=== PATIENT | female | born 1960 | race African-American/Black ===

== ENCOUNTER 2016-07-05 15:44 | Observation (INO) | payer MEDICAID ==
[2016-07-05 19:51] LABS: ABSOLUTE EOSINOPHILS # (AUTO) 0.4 10^3/uL (0.0-0.6); ABSOLUTE LYMPHOCYTES (AUTO) 3.8 10^3/uL (0.5-4.7); ABSOLUTE MONOCYTES (AUTO) 0.7 10^3/uL (0.1-1.4); ABSOLUTE NEUT (AUTO) 4.9 10^3/uL (1.7-8.2); BASOPHILS % (AUTO) 0.5 % (0-2); EOSINOPHILS % (AUTO) 3.7 % (0-6); HEMOGLOBIN 11.5 g/dL (12.0-15.5); HGB HCT DIFFERENCE -0.5; MEAN CORPUSCULAR HEMOGLOBIN 28.6 pg (27.0-33.4); MEAN CORPUSCULAR HGB CONC 32.9 g/dL (32.0-36.0); MEAN CORPUSCULAR VOLUME 87 fl (80-97); MONOCYTES % (AUTO) 6.8 % (3-13); RED BLOOD COUNT 4.03 10^6/uL (3.72-5.28); RED CELL DISTRIBUTION WIDTH 15.2 % (11.5-14.0); WHITE BLOOD COUNT 9.8 10^3/uL (4.0-10.5)
[2016-07-05 20:03] LABS: ALBUMIN 4.5 g/dL (3.5-5.0); BILIRUBIN,TOTAL 0.5 mg/dL (0.2-1.3); LIPASE 144.3 U/L (23-300); TOTAL PROTEIN 7.4 g/dL (6.3-8.2)
[2016-07-05 20:14] LABS: CREATINE KINASE MB 0.76 ng/mL (<4.55)
[2016-07-05 20:18] LABS: TROPONIN I < 0.012 ng/mL
[2016-07-05 20:32] LABS: THYROID STIMULATING HORMONE 1.75 uIU/mL (0.47-4.68)
[2016-07-05 20:42] LABS: ANION GAP 16 (5-19); BLOOD UREA NITROGEN 21 mg/dL (7-20); CALCIUM 10.6 mg/dL (8.4-10.2); CARBON DIOXIDE 24 mmol/L (22-30); CHLORIDE 100 mmol/L (98-107); GLUCOSE 244 mg/dL (75-110); POTASSIUM 4.1 mmol/L (3.6-5.0); SODIUM 140.1 mmol/L (137-145)
[2016-07-05] MEDS: OXYCODONE-ACETAMINOPHEN 5-325 MG TABLET PO PRN (23:28)
[2016-07-06] MEDS: OXYCODONE-ACETAMINOPHEN 5-325 MG TABLET PO PRN ×4 (04:10→23:30)
[2016-07-06 04:23] LABS: APPEARANCE,URINE CLEAR; BILIRUBIN,URINE NEGATIVE (NEGATIVE); GLUCOSE, URINE >=500 mg/dL (NEGATIVE); KETONES,URINE NEGATIVE (NEGATIVE); LEUKOCYTE ESTERASE,URINE NEGATIVE (NEGATIVE); NITRITE,URINE NEGATIVE (NEGATIVE); PROTEIN,URINE NEGATIVE (NEGATIVE); URINE SPECIFIC GRAVITY 1.023; UROBILINOGEN,URINE NEGATIVE mg/dL (<2.0)
[2016-07-06 04:31] LABS: CREATINE KINASE MB 0.57 ng/mL (<4.55); TROPONIN I < 0.012 ng/mL
[2016-07-06] MEDS: ENOXAPARIN SODIUM INJ 40 MG/0.4 ML DISP.SYRIN SUBCUT SCH (08:17)
[2016-07-06 09:15] LABS: HEMATOCRIT 33.8 % (36.0-47.0); HEMOGLOBIN 11.2 g/dL (12.0-15.5); HGB HCT DIFFERENCE -0.2; MEAN CORPUSCULAR HEMOGLOBIN 28.9 pg (27.0-33.4); MEAN CORPUSCULAR HGB CONC 33.3 g/dL (32.0-36.0); MEAN CORPUSCULAR VOLUME 87 fl (80-97); RED BLOOD COUNT 3.89 10^6/uL (3.72-5.28); RED CELL DISTRIBUTION WIDTH 14.8 % (11.5-14.0); WHITE BLOOD COUNT 8.7 10^3/uL (4.0-10.5)
[2016-07-06] MEDS ORDERED: DEXTROSE 40% GEL 15 GM TUBE PO PRN (10:11)
[2016-07-06] MEDS ORDERED: DEXTROSE 50%-WATER SYRINGE 25 GM/50 ML DOSE IV PRN (10:11)
[2016-07-06] MEDS ORDERED: DEXTROSE 50%-WATER SYRINGE 12.5 GM/25 ML DOSE IV PRN (10:11)
[2016-07-06] MEDS ORDERED: DEXTROSE 40% GEL 15 GM TUBE X 2 PO PRN (10:11)
[2016-07-06] MEDS ORDERED: GLUCAGON,HUMAN RECOMB 1 MG INJ IM PRN (10:11)
[2016-07-06] MEDS: INSULIN LISPRO 100 UNIT/ML 3 ML VIAL SUBCUT PRN ×2 (12:16→17:14)
[2016-07-06] MEDS: MORPHINE SULFATE 10 MG/ML INJ IV PRN ×2 (12:29→19:26)
[2016-07-06] MEDS ORDERED: ENALAPRIL MALEATE 10 MG TABLET PO ONE (12:30)
[2016-07-06] MEDS ORDERED: CARVEDILOL 12.5 MG TABLET PO ONE (12:30)
[2016-07-06] MEDS ORDERED: VALSARTAN 160 MG TABLET PO ONE (12:30)
[2016-07-06] MEDS ORDERED: CHLORTHALIDONE 25 MG TABLET PO ONE (12:30)
[2016-07-06 12:58] LABS: PROTHROMBIN TIME 13.6 SEC (11.4-15.4)
--- NOTE | 2016-07-06 13:27 | PDOC CONSULTATION ---
Consultation Consult Date: 07/06/16 Attending physician:: MAICOL BEST Consult reason:: Epigastric pain History of Present Illness Admission Date/PCP: 07/05/16 18:45 MAKAYLA ESPINOZA MD History of Present Illness: RADHA DENSON is a 56 year old female Patient has been seen multiple times in the past had EGD in the past not able to tolerated conscious sedation patient states has epigastric pain, does have previous ventral hernia repair with mesh patient previous EGD showed some gastritis and likely some Mckenzie's patient did not return for follow up as an outpatient patient denies any nausea and vomiting there is no melena patient states has some early satiety blood per rectum admitted for further work up CT scan done, no significant findings Past Medical History Cardiac Medical History: Reports: Atrial Fibrillation, Congestive Heart Failure , Myocardial Infarction, Hyperlipidema, Hypertension Denies: Coronary Artery Disease Pulmonary Medical History: Reports: Asthma, Chronic Obstructive Pulmonary Disease (COPD), Pneumonia Denies: Bronchitis, Tuberculosis Neurological Medical History: Denies: Seizures Endocrine Medical History: Reports: Diabetes Mellitus Type 1, Diabetes Mellitus Type 2 GI Medical History: Reports: Gastroesophageal Reflux Disease Musculoskeltal Medical History: Reports: Arthritis, Fibromyalgia Psychiatric Medical History: Reports: Depression Hematology: Denies: Anemia Past Surgical History Past Surgical History: Reports: Cardiac Catheterization, Cholecystectomy, Herniorrhaphy, Hysterectomy, Orthopedic Surgery - right foot, right knee, right hand, Tubal Ligation Denies: Pacemaker Social History Smoking Status: Current Every Day Smoker Cigarettes Packs Per Day: 0.5 Frequency of Alcohol Use: Rare Hx Recreational Drug Use: No Drugs: None Hx Prescription Drug Abuse: No Family History Family History: DM Parental Family History Reviewed: Yes Children Family History Reviewed: Unknown Sibling(s) Family History Reviewed.: Unknown Medication/Allergy Home Medications: Atorvastatin Calcium [Lipitor 40 mg Tablet] 40 mg PO QHS 07/06/16 Canagliflozin [Invokana] 50 mg PO BID 07/06/16 Carvedilol [Coreg 25 mg Tablet] 25 mg PO Q12 07/06/16 Chlorthalidone [Chlorthalidone 25 mg Tablet] 25 mg PO DAILY 07/06/16 Dexlansoprazole [Dexilant 60 mg Capsule] 60 mg PO DAILY 07/06/16 Enalapril Maleate [Vasotec 20 mg Tablet] 20 mg PO DAILY 07/06/16 Furosemide [Lasix] 40 mg PO QAM 07/06/16 Insulin Aspart [Novolog Flexpen] 18 unit SUBCUT BIDACBS 07/06/16 Insulin Detemir [Levemir Insulin 300 Units/3 ml Insuln.pen] 80 unit SUBCUT QHS 07/06/16 Levothyroxine Sodium [Synthroid] 100 mcg PO DAILY 07/06/16 Metformin HCl [Glucophage] 1,000 mg PO BID 07/06/16 Multivitamin [Multivitamins] 1 each PO DAILY 07/06/16 Valsartan [Diovan] 320 mg PO DAILY 07/06/16 Allergies/Adverse Reactions: No Known Allergies Allergy (Verified 05/05/16 15:00) Review of Systems Constitutional: ABSENT: fever(s), headache(s), night sweats, weakness Eyes: ABSENT: visual disturbances Ears: ABSENT: hearing changes Nose, Mouth, and Throat: ABSENT: mouth pain Cardiovascular: ABSENT: edema, orthropnea Respiratory: ABSENT: dyspnea, hemoptysis, other Gastrointestinal: ABSENT: coffee ground emesis, diarrhea, dysphagia, nausea, vomiting Genitourinary: ABSENT: dysuria, hematuria Musculoskeletal: ABSENT: deformity, joint swelling Integumentary: ABSENT: lesions Neurological: ABSENT: frequent falls, paresthesias, syncope, tingling, tremor(s) Psychiatric: PRESENT: anxiety. ABSENT: hallucinations Endocrine: ABSENT: heat intolerance, polydipsia, polyphagia, polyuria Hematologic/Lymphatic: ABSENT: easy bruising Physical Exam Vital Signs: Temp Pulse Resp BP Pulse Ox 97.6 F 81 20 123/71 97 07/06/16 11:44 07/06/16 11:44 07/06/16 11:44 07/06/16 11:44 07/06/16 11:44 Intake & Output 07/05/16 07/06/16 07/07/16 06:59 06:59 06:59 Intake Total 240 Output Total 500 Balance -260 Weight 105.1 kg General appearance: PRESENT: mild distress, well-developed, well-nourished Head exam: PRESENT: atraumatic, normocephalic Eye exam: PRESENT: EOMI, PERRLA. ABSENT: nystagmus, periorbital swelling, scleral icterus Mouth exam: PRESENT: moist, neck supple Throat exam: ABSENT: tonsillar exudate, tonsillogmegaly Neck exam: ABSENT: meningismus, tenderness, thyromegaly Respiratory exam: PRESENT: symmetrical, unlabored. ABSENT: rales, retraction, tachypnea GI/Abdominal exam: PRESENT: soft. ABSENT: Maldonado's sign, rebound, rigid, tenderness Extremities exam: ABSENT: joint swelling Musculoskeletal exam: PRESENT: full ROM Neurological exam: PRESENT: alert, awake, oriented to person, oriented to place , oriented to time, oriented to situation, reflexes normal Psychiatric exam: PRESENT: anxious Skin exam: PRESENT: normal color. ABSENT: mottled, pallor, urticaria, vesicles Results Laboratory Results: 07/06/16 03:55 07/06/16 03:59 07/05/16 07/05/16 07/05/16 19:45 19:45 19:45 WBC 9.8 RBC 4.03 Hgb 11.5 L Hct 35.0 L MCV 87 MCH 28.6 MCHC 32.9 RDW 15.2 H Plt Count 309 Seg Neutrophils % 50.0 Lymphocytes % 39.0 Monocytes % 6.8 Eosinophils % 3.7 Basophils % 0.5 Absolute Neutrophils 4.9 Absolute Lymphocytes 3.8 Absolute Monocytes 0.7 Absolute Eosinophils 0.4 Absolute Basophils 0.0 Sodium Potassium Chloride Carbon Dioxide Anion Gap BUN Creatinine Est GFR ( Amer) Est GFR (Non-Af Amer) Glucose Calcium Total Bilirubin 0.5 AST 22 ALT 31 Alkaline Phosphatase 112 Total Protein 7.4 Albumin 4.5 Amylase 102 Lipase 144.3 TSH 1.75 Free T4 1.08 Urine Color Urine Appearance Urine pH Ur Specific Hundred Urine Protein Urine Glucose (UA) Urine Ketones Urine Blood Urine Nitrite Ur Leukocyte Esterase Urine RBC (Auto) 07/05/16 07/05/16 07/06/16 19:45 19:45 03:55 WBC 8.7 RBC 3.89 Hgb 11.2 L Hct 33.8 L MCV 87 MCH 28.9 MCHC 33.3 RDW 14.8 H Plt Count 296 Seg Neutrophils % Lymphocytes % Monocytes % Eosinophils % Basophils % Absolute Neutrophils Absolute Lymphocytes Absolute Monocytes Absolute Eosinophils Absolute Basophils Sodium Cancelled 140.1 Potassium Cancelled 4.1 Chloride Cancelled 100 Carbon Dioxide Cancelled 24 Anion Gap Cancelled 16 BUN Cancelled 21 H Creatinine Cancelled 0.90 Est GFR ( Amer) Cancelled > 60 Est GFR (Non-Af Amer) Cancelled > 60 Glucose Cancelled 244 H Calcium Cancelled 10.6 H Total Bilirubin Cancelled AST Cancelled ALT Cancelled Alkaline Phosphatase Cancelled Total Protein Cancelled Albumin Cancelled Amylase Lipase TSH Free T4 Urine Color Urine Appearance Urine pH Ur Specific Hundred Urine Protein Urine Glucose (UA) Urine Ketones Urine Blood Urine Nitrite Ur Leukocyte Esterase Urine RBC (Auto) 07/06/16 07/06/16 03:59 04:10 WBC RBC Hgb Hct MCV MCH MCHC RDW Plt Count Seg Neutrophils % Lymphocytes % Monocytes % Eosinophils % Basophils % Absolute Neutrophils Absolute Lymphocytes Absolute Monocytes Absolute Eosinophils Absolute Basophils Sodium Potassium Chloride Carbon Dioxide Anion Gap BUN Creatinine 0.80 Est GFR ( Amer) > 60 Est GFR (Non-Af Amer) > 60 Glucose Calcium Total Bilirubin AST ALT Alkaline Phosphatase Total Protein Albumin Amylase Lipase TSH Free T4 Urine Color STRAW Urine Appearance CLEAR Urine pH 5.0 Ur Specific Hundred 1.023 Urine Protein NEGATIVE Urine Glucose (UA) >=500 H Urine Ketones NEGATIVE Urine Blood NEGATIVE Urine Nitrite NEGATIVE Ur Leukocyte Esterase NEGATIVE Urine RBC (Auto) 0 07/05/16 07/05/16 07/06/16 19:45 19:45 03:59 Creatine Kinase 87 68 CK-MB (CK-2) 0.76 Troponin I < 0.012 07/06/16 03:59 Creatine Kinase CK-MB (CK-2) 0.57 Troponin I < 0.012 Impressions: Chest X-Ray 07/05/16 00:00 IMPRESSION: NO ACUTE RADIOGRAPHIC FINDING IN THE CHEST. NO SIGNIFICANT CHANGE FROM PRIOR STUDY. Abdomen/Pelvis CT 07/06/16 00:00 IMPRESSION: Intact ventral hernia repair Assessment & Plan - Diagnosis (1) Abdominal pain Qualifiers: Plan: Epigastric in location likely due to her known history of possible hiatal hernia will need to rule out for possible incarceration repeat EGD indicated Risks, benefits and alternatives are explained to the patient in detail if negative, will need surgery consult continue PPI since patient cannot tolerate conscious sedation will need Propofol sedation in the OR patient willing to proceed on her previous EGD, she also was noted to have Mckenzie's will perform ablation for the patient. she is agreeable to proceed she is advised that there is going to be discomfort if ablation is performed however she has pain in the area prior to her procedure - Time Time Spent: 50 to 70 Minutes
[2016-07-06 13:40] LABS: CREATINE KINASE MB 0.49 ng/mL (<4.55)
[2016-07-06 13:44] LABS: TROPONIN I < 0.012 ng/mL
[2016-07-06] MEDS ORDERED: INSULIN ASPART 18 UNIT SUBCUT SCH (16:00)
[2016-07-06] MEDS: METFORMIN HCL 500 MG TABLET PO SCH (16:24)
[2016-07-06] MEDS: INSULIN LISPRO 100 UNIT/ML 3 ML VIAL SUBCUT SCH (17:13)
[2016-07-06] MEDS ORDERED: CANAGLIFLOZIN PO SCH (18:00)
--- NOTE | 2016-07-06 18:16 | PDOC H&P ---
History of Present Illness Admission Date/PCP: 07/05/16 18:45 MAKAYLA ESPINOZA MD History of Present Illness: Patient is a 56 year old female with history of diabetes mellitus type II, she came to the office complaining of abdominal pain, she said the pain is severe, the pain is epigastric and she said the patient radiate from the front to the back, because OF the cause for acute pancreatitis she was admitted directly from the office to the hospital for evaluation and management of her symptoms. Initial blood tests including comprehensive metabolic panel, hemogram came back normal. The CT scan of the abdomen and pelvis was negative for any acute pathology. She has history of ventral hernia repair with a mesh, she thinks her symptoms are related to the abdominal mesh. There is no passage of black tarry stool there is no hematochezia there is no vomiting blood she has nausea Past Medical History Cardiac Medical History: Reports: Atrial Fibrillation, Congestive Heart Failure , Myocardial Infarction, Hyperlipidema, Hypertension Pulmonary Medical History: Reports: Asthma, Chronic Obstructive Pulmonary Disease (COPD), Pneumonia Endocrine Medical History: Reports: Diabetes Mellitus Type 2, Obesity GI Medical History: Reports: Gastroesophageal Reflux Disease Musculoskeltal Medical History: Reports: Arthritis, Fibromyalgia Psychiatric Medical History: Reports: Depression Past Surgical History Past Surgical History: Reports: Cardiac Catheterization, Cholecystectomy, Herniorrhaphy, Hysterectomy, Orthopedic Surgery - right foot, right knee, right hand, Tubal Ligation Social History Smoking Status: Current Every Day Smoker Cigarettes Packs Per Day: 0.5 Frequency of Alcohol Use: Rare Hx Recreational Drug Use: No Drugs: None Hx Prescription Drug Abuse: No Family History Family History: DM Parental Family History Reviewed: Yes Children Family History Reviewed: Yes Sibling(s) Family History Reviewed.: Yes Medication/Allergy Home Medications: Atorvastatin Calcium [Lipitor 40 mg Tablet] 40 mg PO QHS 07/06/16 Canagliflozin [Invokana] 50 mg PO BID 07/06/16 Carvedilol [Coreg 25 mg Tablet] 25 mg PO Q12 07/06/16 Chlorthalidone [Chlorthalidone 25 mg Tablet] 25 mg PO DAILY 07/06/16 Dexlansoprazole [Dexilant 60 mg Capsule] 60 mg PO DAILY 07/06/16 Enalapril Maleate [Vasotec 20 mg Tablet] 20 mg PO DAILY 07/06/16 Furosemide [Lasix] 40 mg PO QAM 07/06/16 Insulin Aspart [Novolog Flexpen] 18 unit SUBCUT BIDACBS 07/06/16 Insulin Detemir [Levemir Insulin 300 Units/3 ml Insuln.pen] 80 unit SUBCUT QHS 07/06/16 Levothyroxine Sodium [Synthroid] 100 mcg PO DAILY 07/06/16 Metformin HCl [Glucophage] 1,000 mg PO BID 07/06/16 Multivitamin [Multivitamins] 1 each PO DAILY 07/06/16 Valsartan [Diovan] 320 mg PO DAILY 07/06/16 Allergies/Adverse Reactions: No Known Allergies Allergy (Verified 05/05/16 15:00) Review of Systems Constitutional: PRESENT: fatigue Eyes: ABSENT: visual disturbances Ears: ABSENT: hearing changes Cardiovascular: ABSENT: chest pain, dyspnea on exertion, edema, orthropnea, palpitations Respiratory: ABSENT: cough, hemoptysis Gastrointestinal: PRESENT: abdominal pain, nausea Genitourinary: ABSENT: dysuria, hematuria Musculoskeletal: ABSENT: joint swelling Integumentary: ABSENT: rash, wounds Neurological: ABSENT: abnormal gait, abnormal speech, confusion, dizziness, focal weakness, syncope Psychiatric: ABSENT: anxiety, depression, homidical ideation, suicidal ideation Endocrine: ABSENT: cold intolerance, heat intolerance, menstrual abnormalities, polydipsia, polyuria Hematologic/Lymphatic: ABSENT: easy bleeding, easy bruising, lymphadenopathy Physical Exam Vital Signs: Temp Pulse Resp BP Pulse Ox 97.8 F 72 20 97/48 L 97 07/06/16 15:56 07/06/16 15:56 07/06/16 15:56 07/06/16 15:56 07/06/16 15:56 Intake & Output 07/05/16 07/06/16 07/07/16 06:59 06:59 06:59 Intake Total 240 620 Output Total 500 Balance -260 620 Weight 105.1 kg General appearance: PRESENT: mild distress Head exam: PRESENT: atraumatic, normocephalic Eye exam: PRESENT: PERRLA Mouth exam: PRESENT: moist Cardiovascular exam: PRESENT: RRR, +S1, +S2 GI/Abdominal exam: PRESENT: tenderness - There is tenderness in the epigastrium Rectal exam: PRESENT: deferred Neurological exam: PRESENT: alert, awake, oriented to person, oriented to place , oriented to time, oriented to situation, CN II-XII grossly intact Psychiatric exam: PRESENT: appropriate affect, normal mood Skin exam: PRESENT: dry, intact, warm Results Laboratory Results: 07/06/16 03:55 07/06/16 03:59 07/05/16 07/05/16 07/05/16 19:45 19:45 19:45 WBC 9.8 RBC 4.03 Hgb 11.5 L Hct 35.0 L MCV 87 MCH 28.6 MCHC 32.9 RDW 15.2 H Plt Count 309 Seg Neutrophils % 50.0 Lymphocytes % 39.0 Monocytes % 6.8 Eosinophils % 3.7 Basophils % 0.5 Absolute Neutrophils 4.9 Absolute Lymphocytes 3.8 Absolute Monocytes 0.7 Absolute Eosinophils 0.4 Absolute Basophils 0.0 Sodium Potassium Chloride Carbon Dioxide Anion Gap BUN Creatinine Est GFR ( Amer) Est GFR (Non-Af Amer) Glucose Calcium Total Bilirubin 0.5 AST 22 ALT 31 Alkaline Phosphatase 112 Total Protein 7.4 Albumin 4.5 Amylase 102 Lipase 144.3 TSH 1.75 Free T4 1.08 Urine Color Urine Appearance Urine pH Ur Specific [place] Urine Protein Urine Glucose (UA) Urine Ketones Urine Blood Urine Nitrite Ur Leukocyte Esterase Urine RBC (Auto) 07/05/16 07/05/16 07/06/16 19:45 19:45 03:55 WBC 8.7 RBC 3.89 Hgb 11.2 L Hct 33.8 L MCV 87 MCH 28.9 MCHC 33.3 RDW 14.8 H Plt Count 296 Seg Neutrophils % Lymphocytes % Monocytes % Eosinophils % Basophils % Absolute Neutrophils Absolute Lymphocytes Absolute Monocytes Absolute Eosinophils Absolute Basophils Sodium Cancelled 140.1 Potassium Cancelled 4.1 Chloride Cancelled 100 Carbon Dioxide Cancelled 24 Anion Gap Cancelled 16 BUN Cancelled 21 H Creatinine Cancelled 0.90 Est GFR ( Amer) Cancelled > 60 Est GFR (Non-Af Amer) Cancelled > 60 Glucose Cancelled 244 H Calcium Cancelled 10.6 H Total Bilirubin Cancelled AST Cancelled ALT Cancelled Alkaline Phosphatase Cancelled Total Protein Cancelled Albumin Cancelled Amylase Lipase TSH Free T4 Urine Color Urine Appearance Urine pH Ur Specific [place] Urine Protein Urine Glucose (UA) Urine Ketones Urine Blood Urine Nitrite Ur Leukocyte Esterase Urine RBC (Auto) 07/06/16 07/06/16 03:59 04:10 WBC RBC Hgb Hct MCV MCH MCHC RDW Plt Count Seg Neutrophils % Lymphocytes % Monocytes % Eosinophils % Basophils % Absolute Neutrophils Absolute Lymphocytes Absolute Monocytes Absolute Eosinophils Absolute Basophils Sodium Potassium Chloride Carbon Dioxide Anion Gap BUN Creatinine 0.80 Est GFR ( Amer) > 60 Est GFR (Non-Af Amer) > 60 Glucose Calcium Total Bilirubin AST ALT Alkaline Phosphatase Total Protein Albumin Amylase Lipase TSH Free T4 Urine Color STRAW Urine Appearance CLEAR Urine pH 5.0 Ur Specific [place] 1.023 Urine Protein NEGATIVE Urine Glucose (UA) >=500 H Urine Ketones NEGATIVE Urine Blood NEGATIVE Urine Nitrite NEGATIVE Ur Leukocyte Esterase NEGATIVE Urine RBC (Auto) 0 07/05/16 07/05/16 07/06/16 19:45 19:45 03:59 Creatine Kinase 87 68 CK-MB (CK-2) 0.76 Troponin I < 0.012 07/06/16 07/06/16 07/06/16 03:59 12:37 12:37 Creatine Kinase 73 CK-MB (CK-2) 0.57 0.49 Troponin I < 0.012 < 0.012 Impressions: Chest X-Ray 07/05/16 00:00 IMPRESSION: NO ACUTE RADIOGRAPHIC FINDING IN THE CHEST. NO SIGNIFICANT CHANGE FROM PRIOR STUDY. Abdomen/Pelvis CT 07/06/16 00:00 IMPRESSION: Intact ventral hernia repair Assessment & Plan - Diagnosis (1) Abdominal pain Qualifiers: Abdominal location: epigastric Qualified Code(s): R10.13 - Epigastric pain Is this a current diagnosis for this admission?: YesPlan: The differential diagnoses is long, it includes acute pancreatitis, peptic ulcer disease, penetrating ulcer disease, pulmonary pathology: Cardiac pathology. The CT scan of the abdomen and pelvis did not show any acute pathology ,GI consultation will be requested from DR Brandt (2) Diabetes mellitus type 2 in obese Is this a current diagnosis for this admission?: Yes (3) Morbid obesity Qualifiers: Obesity type: unspecified obesity type Qualified Code(s): E66.01 - Morbid (severe) obesity due to excess calories Is this a current diagnosis for this admission?: Yes
[2016-07-06] MEDS: ATORVASTATIN CALCIUM 40 MG TABLET PO SCH (21:59)
[2016-07-06] MEDS: CARVEDILOL 12.5 MG TABLET PO SCH (23:27)
[2016-07-06] MEDS: INSULIN DETEMIR 100 UNIT/ML 3 ML PEN SUBCUT SCH (23:27)
[2016-07-07] MEDS: LANSOPRAZOLE 30 MG TAB.RAP.DR PO SCH (05:21)
[2016-07-07] MEDS: MORPHINE SULFATE 10 MG/ML INJ IV PRN (05:48)
[2016-07-07] MEDS ORDERED: RINGERS SOLUTION,LACTATED 1,000 ML IV PRN (09:04)
[2016-07-07] MEDS ORDERED: PROPOFOL INJ 200 MG/20 ML VIAL IV ONE (09:28)
[2016-07-07] MEDS ORDERED: FENTANYL CITRATE INJ/PF 100 MCG/2 ML AMPUL IV PRN ×2 (09:58)
[2016-07-07] MEDS ORDERED: MEPERIDINE HCL/PF INJ 25 MG/1 ML DISP.SYRIN IV PRN (09:58)
[2016-07-07] MEDS ORDERED: DIPHENHYDRAMINE HCL 50 MG/ML VIAL IV PRN (09:58)
[2016-07-07] MEDS ORDERED: PROMETHAZINE HCL INJ 25 MG/1 ML VIAL IV PRN (09:58)
[2016-07-07] MEDS ORDERED: (PENDING PHARMACY ID) (Enalapril Maleate [Vasotec 20 Mg Tablet] 20 MG) PO SCH (10:00)
[2016-07-07] MEDS ORDERED: (PENDING PHARMACY ID) (Valsartan [Diovan] 320 MG) PO SCH (10:00)
[2016-07-07] MEDS ORDERED: LEVOTHYROXINE SODIUM 0.1 MG TABLET PO SCH (10:00)
--- NOTE | 2016-07-07 10:00 | Operative Report ---
Operative Report DATE OF SURGERY: 07/07/16 Operative Report: The risks benefits and alternatives of the procedure explained to the patient in detail and informed consent is obtained that GIF Olympus video scope was inserted into the patient's mouth and hypopharynx the esophagus is identified intubated and insufflated the scope was then advanced through the esophagus stomach and duodenum retroflexion maneuver is done the esophagus stomach and first and second portions of the duodenum examined PREOPERATIVE DIAGNOSIS: Epigastric pain, history of Mckenzie's esophagus POSTOPERATIVE DIAGNOSIS: Mckenzie's esophagus status post ablation. Gastric biopsy rule out Helicobacter pylori OPERATION: EGD with ablation. EGD with biopsy SURGEON: MAICOL BEST ANESTHESIA: LMAC TISSUE REMOVED OR ALTERED: Gastric specimen obtained rule out Helicobacter pylori COMPLICATIONS: None. ESTIMATED BLOOD LOSS: none. INTRAOPERATIVE FINDINGS: Mckenzie's esophagus. Gastritis status post biopsy. First and second portion of the duodenum normal PROCEDURE: Patient tolerated the procedure well. No immediate postprocedure complications are noted. Patient was sent back to her room in good condition. Resume regular diet. Resume previous activity level. Continue PPI Carafate as needed No obvious ulcers noted Surveillance EGD in 1 year for documentation of eradication
[2016-07-07] MEDS: OXYCODONE-ACETAMINOPHEN 5-325 MG TABLET PO PRN ×2 (11:44→16:01)
[2016-07-07] MEDS: ENOXAPARIN SODIUM INJ 40 MG/0.4 ML DISP.SYRIN SUBCUT SCH (11:51)
[2016-07-07] MEDS: MULTIVITAMIN TABLET PO SCH (11:52)
[2016-07-07] MEDS: CARVEDILOL 12.5 MG TABLET PO SCH ×2 (11:52→22:45)
[2016-07-07] MEDS: INSULIN LISPRO 100 UNIT/ML 3 ML VIAL SUBCUT PRN ×2 (11:52→16:58)
[2016-07-07] MEDS: CHLORTHALIDONE 25 MG TABLET PO SCH (11:53)
[2016-07-07] MEDS: FUROSEMIDE 40 MG TABLET PO SCH (11:53)
[2016-07-07] MEDS: INSULIN LISPRO 100 UNIT/ML 3 ML VIAL SUBCUT SCH ×2 (11:54→16:58)
[2016-07-07] MEDS: METFORMIN HCL 500 MG TABLET PO SCH ×2 (11:54→16:58)
[2016-07-07] MEDS: VALSARTAN 160 MG TABLET PO SCH (16:59)
[2016-07-07] MEDS: ENALAPRIL MALEATE 10 MG TABLET PO SCH (16:59)
--- NOTE | 2016-07-07 17:54 | PDOC PROGRESS REPORT ---
Subjective Progress Note for:: 07/07/16 Subjective:: she had upper endoscopy done today, she was found to have Mckenzie's esophagus and otherwise it was a negative study. She continues to severe pain in the epigastrium that radiated to the back, the patient is worse with food and she is now afraid to eat, so far CT scan of abdomen and pelvis was negative as well as the the EGD CTA of the abdomen is ordered to rule out ischemic bowel disease /celic artery stenosis Physical Exam Vital Signs: Temp Pulse Resp BP Pulse Ox 98.1 F 77 16 93/61 L 99 07/07/16 15:27 07/07/16 15:27 07/07/16 15:27 07/07/16 15:27 07/07/16 15:27 Intake & Output 07/06/16 07/07/16 07/08/16 06:59 06:59 06:59 Intake Total 240 1146 272 Output Total 500 0 Balance -260 1146 272 Weight 105.1 kg 106.5 kg General appearance: PRESENT: mild distress Eye exam: PRESENT: PERRLA Respiratory exam: PRESENT: decreased breath sounds Cardiovascular exam: PRESENT: +S1, +S2 GI/Abdominal exam: PRESENT: soft, tenderness - There is tenderness in the epigastric area Neurological exam: PRESENT: alert, CN II-XII grossly intact Results Laboratory Results: 07/06/16 03:55 07/06/16 03:59 07/05/16 07/05/16 07/06/16 19:45 19:45 03:59 Creatine Kinase 87 68 CK-MB (CK-2) 0.76 Troponin I < 0.012 07/06/16 07/06/16 07/06/16 03:59 12:37 12:37 Creatine Kinase 73 CK-MB (CK-2) 0.57 0.49 Troponin I < 0.012 < 0.012 Impressions: Chest X-Ray 07/05/16 00:00 IMPRESSION: NO ACUTE RADIOGRAPHIC FINDING IN THE CHEST. NO SIGNIFICANT CHANGE FROM PRIOR STUDY. Abdomen/Pelvis CT 07/06/16 00:00 IMPRESSION: Intact ventral hernia repair Assessment & Plan - Diagnosis (1) Abdominal pain Qualifiers: Abdominal location: epigastric Qualified Code(s): R10.13 - Epigastric pain Is this a current diagnosis for this admission?: YesPlan: She continues to develop pain so far the CT scan of the abdomen and pelvis is negative, upper endoscopy is negative, CTA of the abdomen is ordered (2) Diabetes mellitus type 2 in obese Is this a current diagnosis for this admission?: Yes (3) Morbid obesity Qualifiers: Obesity type: unspecified obesity type Qualified Code(s): E66.01 - Morbid (severe) obesity due to excess calories Is this a current diagnosis for this admission?: Yes
[2016-07-07 21:23] LABS: CREATINE KINASE MB 1.01 ng/mL (<4.55)
[2016-07-07 21:28] LABS: TROPONIN I < 0.012 ng/mL
[2016-07-07] MEDS: ATORVASTATIN CALCIUM 40 MG TABLET PO SCH (22:45)
[2016-07-07] MEDS: INSULIN DETEMIR 100 UNIT/ML 3 ML PEN SUBCUT SCH (22:45)
[2016-07-08 05:06] LABS: CREATINE KINASE MB 0.44 ng/mL (<4.55); TROPONIN I 0.012 ng/mL
[2016-07-08] MEDS: LANSOPRAZOLE 30 MG TAB.RAP.DR PO SCH (06:26)
[2016-07-08] MEDS ORDERED: LEVOTHYROXINE SODIUM 0.1 MG TABLET PO ONE (08:00)
[2016-07-08] MEDS: INSULIN LISPRO 100 UNIT/ML 3 ML VIAL SUBCUT PRN ×4 (08:54→22:23)
[2016-07-08] MEDS: INSULIN LISPRO 100 UNIT/ML 3 ML VIAL SUBCUT SCH ×2 (08:54→16:38)
[2016-07-08] MEDS: ENOXAPARIN SODIUM INJ 40 MG/0.4 ML DISP.SYRIN SUBCUT SCH (08:58)
[2016-07-08] MEDS: METFORMIN HCL 500 MG TABLET PO SCH ×2 (08:58→16:06)
[2016-07-08] MEDS: CARVEDILOL 12.5 MG TABLET PO SCH ×2 (09:26→22:22)
[2016-07-08] MEDS: VALSARTAN 160 MG TABLET PO SCH (09:26)
[2016-07-08] MEDS: ENALAPRIL MALEATE 10 MG TABLET PO SCH (09:26)
[2016-07-08] MEDS: CHLORTHALIDONE 25 MG TABLET PO SCH (09:28)
[2016-07-08] MEDS: FUROSEMIDE 40 MG TABLET PO SCH (09:28)
[2016-07-08] MEDS: MULTIVITAMIN TABLET PO SCH (09:31)
[2016-07-08] MEDS: MORPHINE SULFATE 10 MG/ML INJ IV PRN ×2 (11:50→16:38)
--- NOTE | 2016-07-08 12:03 | OPERATIVE REPORT E ---
Operative Report NAME: RADHA DENSON : 1960 AGE: 56Y DATE OF SURGERY: 07/08/2016 ROOM: 423 SURGEON: KALI DAWN M.D. INDICATION FOR PROCEDURE: I was asked to see the patient because of need for central venous access because of poor peripheral access and need for CT angiogram. Her Lovenox had been held for over 24 hours. DESCRIPTION OF PROCEDURE: After discussion with the patient, risks and alternatives were discussed, and after timeout the patient was prepped and draped in the standard sterile fashion. Xylocaine with epinephrine was used for local anesthesia, and the ultrasound machine was used to locate the right internal jugular vein. The internal jugular vein was entered, and a guidewire was passed. The needle was removed. The vein was dilated over the guidewire, and the dilator was removed. The triple-lumen was positioned then over the guidewire, and the guidewire was removed successfully. The 3 ports all flushed and aspirated adequately. The catheter was secured with the previously provided 3-0 silk suture, and a sterile dressing with a Biopatch was placed. Patient tolerated this procedure well. Estimated blood loss was minimal, and followup chest x-ray revealed adequate line placement and no evidence of hemo- or pneumothorax. The line is able to be used at this time. DICTATING PHYSICIAN: PRAVIN DAWN M.D. [id number] PHY#: [id number] ID: [id number] JOB#: [id number] ACCT: [id number] cc:KALI DAWN M.D. >
[2016-07-08] MEDS: OXYCODONE-ACETAMINOPHEN 5-325 MG TABLET PO PRN ×2 (13:05→19:23)
[2016-07-08] MEDS: NORMAL SALINE 1000 ML 1,000 ML IV PRN (13:06)
--- NOTE | 2016-07-08 13:46 | PDOC PROGRESS REPORT ---
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 patient says has pain when she eats Physical Exam Vital Signs: Temp Pulse Resp BP Pulse Ox 99.2 F 90 16 146/73 H 98 07/08/16 07:31 07/08/16 07:31 07/08/16 12:00 07/08/16 12:00 07/08/16 12:00 Intake & Output 07/07/16 07/08/16 07/09/16 06:59 06:59 06:59 Intake Total 1146 952 Output Total 0 Balance 1146 952 Weight 106.5 kg 108.4 kg General appearance: PRESENT: mild distress, well-developed, well-nourished Head exam: PRESENT: atraumatic, normocephalic Eye exam: PRESENT: EOMI, PERRLA. ABSENT: nystagmus, periorbital swelling, scleral icterus Mouth exam: PRESENT: moist Throat exam: ABSENT: tonsillar exudate Neck exam: ABSENT: meningismus, tenderness, thyromegaly Respiratory exam: PRESENT: symmetrical, unlabored. ABSENT: stridor, tachypnea, wheezes Cardiovascular exam: PRESENT: RRR, +S1, +S2. ABSENT: rubs Pulses: PRESENT: normal carotid pulses GI/Abdominal exam: PRESENT: rigid, soft. ABSENT: Maldonado's sign, rebound, tenderness Extremities exam: ABSENT: joint swelling, pedal edema Neurological exam: PRESENT: oriented to time, oriented to situation, reflexes normal, CN II-XII grossly intact Skin exam: PRESENT: normal color. ABSENT: mottled, pallor, petechiae, rash, urticaria, vesicles Results Laboratory Results: 07/06/16 03:55 07/06/16 03:59 07/05/16 07/05/16 07/06/16 19:45 19:45 03:59 Creatine Kinase 87 68 CK-MB (CK-2) 0.76 Troponin I < 0.012 07/06/16 07/06/16 07/06/16 03:59 12:37 12:37 Creatine Kinase 73 CK-MB (CK-2) 0.57 0.49 Troponin I < 0.012 < 0.012 07/07/16 07/07/16 07/08/16 20:15 20:15 03:37 Creatine Kinase 69 62 CK-MB (CK-2) 1.01 Troponin I < 0.012 07/08/16 03:37 Creatine Kinase CK-MB (CK-2) 0.44 Troponin I 0.012 Impressions: Abdomen/Pelvis CT 07/06/16 00:00 IMPRESSION: Intact ventral hernia repair Chest/Abdomen CTA 07/08/16 00:00 IMPRESSION: 1. No acute abnormality identified in the abdomen. No abdominal aortic aneurysm, pseudoaneurysm, penetrating ulcer, or dissection identified. Mesenteric and renal arteries are patent. 2. Diastases of the anterior abdominal wall, similar to prior study. Chest X-Ray 07/08/16 11:12 IMPRESSION: No pneumothorax post right IJ central venous catheter placement. Catheter tip projects over the distal SVC. No focal opacities. Assessment & Plan - Diagnosis (1) Abdominal pain Qualifiers: Abdominal location: epigastric Qualified Code(s): R10.13 - Epigastric pain Is this a current diagnosis for this admission?: Yes (2) Chest pain Plan: non cardiac negative EGD angiogram in progress to exclude possible median arcuate ligament syndrome pathology is reviewed continue PPI carafate as needed - Time Time Spent with patient: 15-24 minutes
[2016-07-08 14:21] LABS: CREATINE KINASE MB 0.88 ng/mL (<4.55); TROPONIN I 0.089 ng/mL
--- NOTE | 2016-07-08 19:30 | PDOC CONSULTATION ---
History of Present Illness Admission Date/PCP: 07/05/16 18:45 MAKAYLA ESPINOZA MD Patient complains of: Upper abdominal pain History of Present Illness: 56-year-old female with multiple medical problems including diabetes, hypertension, coronary artery disease. Patient currently in the hospital for evaluation of upper abdominal pain has been persistent for several months now. Patient has had some associated nausea and vomiting. She thinks that the pain is worsened with by mouth intake. She has been having loose bowel movements that she is on metformin. No fever. Patient has a history of umbilical hernia repair with mesh in the remote past. She is also had a laparoscopic cholecystectomy over 10 years ago. She has undergone workup for her abdominal pain including abdominal pelvic CT scan as well as CT angiography and the upper endoscopy all of the studies were unremarkable other than Mckenzie's esophagus. 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 Denies: Seizures Endocrine Medical History: Reports: Diabetes Mellitus Type 1, Diabetes Mellitus Type 2, Obesity GI Medical History: Reports: Gastroesophageal Reflux Disease Musculoskeltal Medical History: Reports: Arthritis, Fibromyalgia Psychiatric Medical History: Reports: Depression Hematology: Denies: Anemia Past Surgical History Past Surgical History: Reports: Cardiac Catheterization, Cholecystectomy, Herniorrhaphy, Hysterectomy, Orthopedic Surgery - right foot, right knee, right hand, Tubal Ligation Denies: Pacemaker Social History Smoking Status: Current Every Day Smoker Cigarettes Packs Per Day: 0.5 Frequency of Alcohol Use: Rare Hx Recreational Drug Use: No Drugs: None Hx Prescription Drug Abuse: No - Advance Directive Resuscitation Status: Full Code Family History Family History: DM Parental Family History Reviewed: No Children Family History Reviewed: No Sibling(s) Family History Reviewed.: No Medication/Allergy Home Medications: Atorvastatin Calcium [Lipitor 40 mg Tablet] 40 mg PO QHS 07/06/16 Canagliflozin [Invokana] 50 mg PO BID 07/06/16 Carvedilol [Coreg 25 mg Tablet] 25 mg PO Q12 07/06/16 Chlorthalidone [Chlorthalidone 25 mg Tablet] 25 mg PO DAILY 07/06/16 Dexlansoprazole [Dexilant 60 mg Capsule] 60 mg PO DAILY 07/06/16 Enalapril Maleate [Vasotec 20 mg Tablet] 20 mg PO DAILY 07/06/16 Furosemide [Lasix] 40 mg PO QAM 07/06/16 Insulin Aspart [Novolog Flexpen] 18 unit SUBCUT BIDACBS 07/06/16 Insulin Detemir [Levemir Insulin 300 Units/3 ml Insuln.pen] 80 unit SUBCUT QHS 07/06/16 Levothyroxine Sodium [Synthroid] 100 mcg PO DAILY 07/06/16 Metformin HCl [Glucophage] 1,000 mg PO BID 07/06/16 Multivitamin [Multivitamins] 1 each PO DAILY 07/06/16 Valsartan [Diovan] 320 mg PO DAILY 07/06/16 Allergies/Adverse Reactions: No Known Allergies Allergy (Verified 05/05/16 15:00) Physical Exam Vital Signs: Temp Pulse Resp BP Pulse Ox 98.3 F 79 16 112/53 L 98 07/08/16 15:23 07/08/16 15:23 07/08/16 15:23 07/08/16 15:23 07/08/16 15:23 Intake & Output 07/07/16 07/08/16 07/09/16 06:59 06:59 06:59 Intake Total 7476 316 2824 Output Total 0 Balance 3989 907 3515 Weight 106.5 kg 108.4 kg General appearance: PRESENT: no acute distress, cooperative Neck exam: PRESENT: other - With some mild tenderness at her right IJ central line site. No erythema no swelling. Respiratory exam: PRESENT: clear to auscultation siddhartha Cardiovascular exam: PRESENT: RRR GI/Abdominal exam: PRESENT: other - Obese, unable to tell whether she is distended but her abdomen is very soft there is mild upper abdominal tenderness without peritoneal signs. I do not appreciate any hernia defects. Extremities exam: PRESENT: other - No swelling no calf tenderness. Results Laboratory Results: 07/06/16 03:55 07/06/16 03:59 07/05/16 07/05/16 07/06/16 19:45 19:45 03:59 Creatine Kinase 87 68 CK-MB (CK-2) 0.76 Troponin I < 0.012 07/06/16 07/06/16 07/06/16 03:59 12:37 12:37 Creatine Kinase 73 CK-MB (CK-2) 0.57 0.49 Troponin I < 0.012 < 0.012 07/07/16 07/07/16 07/08/16 20:15 20:15 03:37 Creatine Kinase 69 62 CK-MB (CK-2) 1.01 Troponin I < 0.012 07/08/16 07/08/16 07/08/16 03:37 13:27 13:27 Creatine Kinase 68 CK-MB (CK-2) 0.44 0.88 Troponin I 0.012 0.089 Impressions: Abdomen/Pelvis CT 07/06/16 00:00 IMPRESSION: Intact ventral hernia repair Chest/Abdomen CTA 07/08/16 00:00 IMPRESSION: 1. No acute abnormality identified in the abdomen. No abdominal aortic aneurysm, pseudoaneurysm, penetrating ulcer, or dissection identified. Mesenteric and renal arteries are patent. 2. Diastases of the anterior abdominal wall, similar to prior study. Chest X-Ray 07/08/16 11:12 IMPRESSION: No pneumothorax post right IJ central venous catheter placement. Catheter tip projects over the distal SVC. No focal opacities. Assessment & Plan - Diagnosis (1) Abdominal pain Qualifiers: Abdominal location: epigastric Qualified Code(s): R10.13 - Epigastric pain Is this a current diagnosis for this admission?: YesPlan: Of unknown etiology. I have reviewed the CT scan myself. The pain appears to be mostly subxiphoid the and the right upper quadrant radiating to her right flank in the region of her liver. Her LFTs have been normal however. With the no etiology found by extensive workup, I believe fatty liver disease is certainly in the differential diagnosis. Recommend the liver ultrasound as well as upper GI with small bowel follow series to complete her workup. I do not a surgical problem in this patient unless small bowel series demonstrate a significant finding. If these studies are unremarkable recommend the gastric emptying study to rule out gastroparesis.
--- NOTE | 2016-07-08 20:13 | PDOC PROGRESS REPORT ---
Subjective Progress Note for:: 07/08/16 Subjective:: She continues to complain of upper abdominal pain so far all the evaluation are negative including CAT scans, CT of the abdomen was negative for any vascular pathology upper endoscopy is negative I requested for surgical consultation she was seen by the surgeon on the surgeon is recommending upper GI series if that is negative then she will be discharged home. She is admitted for observation Physical Exam Vital Signs: Temp Pulse Resp BP Pulse Ox 97.8 F 77 19 123/76 98 07/08/16 19:08 07/08/16 19:08 07/08/16 19:08 07/08/16 19:08 07/08/16 19:08 Intake & Output 07/07/16 07/08/16 07/09/16 06:59 06:59 06:59 Intake Total 5398 522 7763 Output Total 0 Balance 0292 494 1575 Weight 106.5 kg 108.4 kg Eye exam: PRESENT: PERRLA Respiratory exam: PRESENT: clear to auscultation siddhartha Cardiovascular exam: PRESENT: +S1, +S2 GI/Abdominal exam: PRESENT: soft, tenderness Neurological exam: PRESENT: alert, CN II-XII grossly intact Results Laboratory Results: 07/06/16 03:55 07/06/16 03:59 07/05/16 07/05/16 07/06/16 19:45 19:45 03:59 Creatine Kinase 87 68 CK-MB (CK-2) 0.76 Troponin I < 0.012 07/06/16 07/06/16 07/06/16 03:59 12:37 12:37 Creatine Kinase 73 CK-MB (CK-2) 0.57 0.49 Troponin I < 0.012 < 0.012 07/07/16 07/07/16 07/08/16 20:15 20:15 03:37 Creatine Kinase 69 62 CK-MB (CK-2) 1.01 Troponin I < 0.012 07/08/16 07/08/16 07/08/16 03:37 13:27 13:27 Creatine Kinase 68 CK-MB (CK-2) 0.44 0.88 Troponin I 0.012 0.089 Impressions: Abdomen/Pelvis CT 07/06/16 00:00 IMPRESSION: Intact ventral hernia repair Chest/Abdomen CTA 07/08/16 00:00 IMPRESSION: 1. No acute abnormality identified in the abdomen. No abdominal aortic aneurysm, pseudoaneurysm, penetrating ulcer, or dissection identified. Mesenteric and renal arteries are patent. 2. Diastases of the anterior abdominal wall, similar to prior study. Chest X-Ray 07/08/16 11:12 IMPRESSION: No pneumothorax post right IJ central venous catheter placement. Catheter tip projects over the distal SVC. No focal opacities. Assessment & Plan - Diagnosis (1) Abdominal pain Qualifiers: Abdominal location: epigastric Qualified Code(s): R10.13 - Epigastric pain Is this a current diagnosis for this admission?: YesPlan: The etiology of the upper abdominal pain is not clear, this is probably neurogenic pain. She was seen by the surgeon and the surgeon is recommending upper GI series, she is scheduled for the procedure to be done tomorrow. (2) Diabetes mellitus type 2 in obese Is this a current diagnosis for this admission?: Yes (3) Morbid obesity Qualifiers: Obesity type: unspecified obesity type Qualified Code(s): E66.01 - Morbid (severe) obesity due to excess calories Is this a current diagnosis for this admission?: Yes
[2016-07-08] MEDS: INSULIN DETEMIR 100 UNIT/ML 3 ML PEN SUBCUT SCH (22:22)
[2016-07-08] MEDS: ATORVASTATIN CALCIUM 40 MG TABLET PO SCH (22:28)
[2016-07-09] MEDS: MORPHINE SULFATE 10 MG/ML INJ IV PRN ×3 (03:45→19:51)
[2016-07-09] MEDS: LANSOPRAZOLE 30 MG TAB.RAP.DR PO SCH (06:24)
[2016-07-09] MEDS: LEVOTHYROXINE SODIUM 0.1 MG TABLET PO SCH (06:24)
[2016-07-09] MEDS: OXYCODONE-ACETAMINOPHEN 5-325 MG TABLET PO PRN ×2 (06:25→11:51)
[2016-07-09] MEDS: INSULIN LISPRO 100 UNIT/ML 3 ML VIAL SUBCUT SCH ×2 (07:56→17:40)
[2016-07-09] MEDS: INSULIN LISPRO 100 UNIT/ML 3 ML VIAL SUBCUT PRN ×3 (07:58→21:54)
[2016-07-09] MEDS: METFORMIN HCL 500 MG TABLET PO SCH ×2 (08:02→16:46)
--- NOTE | 2016-07-09 11:01 | PDOC PROGRESS REPORT ---
Subjective Progress Note for:: 07/09/16 Subjective:: patient had normal CT scan, normal ultrasound ,negative EGD seen by surgery waiting on small bowel series report patient continue to have chronic complints with regards to intake of food and epigastric pain so far objective work up negative will wait on official reading of SB series may be able to be discharged if there are no other significant issues Dr Alvarado following Physical Exam Vital Signs: Temp Pulse Resp BP Pulse Ox 97.6 F 67 16 117/75 98 07/09/16 07:47 07/09/16 07:47 07/09/16 07:47 07/09/16 07:47 07/09/16 07:47 Intake & Output 07/08/16 07/09/16 07/10/16 06:59 06:59 06:59 Intake Total 952 2244 Output Total 0 Balance 952 2244 Weight 108.4 kg 107.2 kg General appearance: PRESENT: no acute distress, well-developed, well-nourished Head exam: PRESENT: atraumatic, normocephalic Eye exam: PRESENT: EOMI, PERRLA. ABSENT: nystagmus, periorbital swelling, scleral icterus Mouth exam: PRESENT: moist Throat exam: ABSENT: tonsillar exudate, tonsillogmegaly Neck exam: ABSENT: meningismus, tenderness, thyromegaly Respiratory exam: PRESENT: clear to auscultation siddhartha, symmetrical, unlabored. ABSENT: tachypnea Cardiovascular exam: PRESENT: RRR, +S1, +S2 Pulses: PRESENT: normal carotid pulses GI/Abdominal exam: PRESENT: normal bowel sounds, soft. ABSENT: Maldonado's sign, rebound, rigid, tenderness Extremities exam: ABSENT: joint swelling Musculoskeletal exam: PRESENT: full ROM Neurological exam: PRESENT: alert, awake, oriented to person, oriented to place , oriented to time, reflexes normal, CN II-XII grossly intact Skin exam: PRESENT: normal color. ABSENT: mottled, pallor, petechiae, rash, urticaria, vesicles Results Laboratory Results: 07/06/16 03:55 07/06/16 03:59 07/05/16 07/05/16 07/06/16 19:45 19:45 03:59 Creatine Kinase 87 68 CK-MB (CK-2) 0.76 Troponin I < 0.012 07/06/16 07/06/1607/06/17 03:59 12:37 12:37 Creatine Kinase 73 CK-MB (CK-2) 0.57 0.49 Troponin I < 0.012 < 0.012 07/07/16 07/07/16 07/08/16 20:15 20:15 03:37 Creatine Kinase 69 62 CK-MB (CK-2) 1.01 Troponin I < 0.012 07/08/16 07/08/16 07/08/16 03:37 13:27 13:27 Creatine Kinase 68 CK-MB (CK-2) 0.44 0.88 Troponin I 0.012 0.089 Impressions: Abdomen/Pelvis CT 07/06/16 00:00 IMPRESSION: Intact ventral hernia repair Chest/Abdomen CTA 07/08/16 00:00 IMPRESSION: 1. No acute abnormality identified in the abdomen. No abdominal aortic aneurysm, pseudoaneurysm, penetrating ulcer, or dissection identified. Mesenteric and renal arteries are patent. 2. Diastases of the anterior abdominal wall, similar to prior study. Chest X-Ray 07/08/16 11:12 IMPRESSION: No pneumothorax post right IJ central venous catheter placement. Catheter tip projects over the distal SVC. No focal opacities. Abdomen Ultrasound 07/09/16 00:00 IMPRESSION: Prior cholecystectomy. No acute findings. Assessment & Plan - Diagnosis (1) Abdominal pain Qualifiers: Abdominal location: epigastric Qualified Code(s): R10.13 - Epigastric pain Is this a current diagnosis for this admission?: YesPlan: negative work up with EGD, CT scan to rule out for medial arcuate ligament syndrome, ultrasound is negative seen by surgery if patient is determined safe to be discharge by attending of record, will follow up as outpatient continue PPI - Time Time Spent with patient: 15-24 minutes
[2016-07-09] MEDS: FUROSEMIDE 40 MG TABLET PO SCH (11:50)
[2016-07-09] MEDS: ENALAPRIL MALEATE 10 MG TABLET PO SCH (11:50)
[2016-07-09] MEDS: CARVEDILOL 12.5 MG TABLET PO SCH ×2 (11:51→21:54)
[2016-07-09] MEDS: MULTIVITAMIN TABLET PO SCH (11:51)
[2016-07-09] MEDS: VALSARTAN 160 MG TABLET PO SCH (11:51)
[2016-07-09] MEDS: CHLORTHALIDONE 25 MG TABLET PO SCH (12:00)
[2016-07-09] MEDS: ENOXAPARIN SODIUM INJ 40 MG/0.4 ML DISP.SYRIN SUBCUT SCH (12:05)
--- NOTE | 2016-07-09 16:03 | PROGRESS NOTE E ---
Progress Note NAME: RADHA DENSON : 1960 AGE: 56Y DATE: 07/09/2016 ROOM: 423 The patient was seen last evening by Dr. Koch. She continued to have some abdominal discomfort and he was consulted after findings of a normal CT scan and normal CT angiogram with no evidence of intraabdominal pathology. On further evaluation, a small bowel follow through was ordered and this upper GI small bowel follow through revealed no significant pathology, other than mild reflux. The patient continues to complain of pain in the midepigastric region and I suspect this is related to esophageal reflux for which she is using DEXILANT and she states that she chews Tums constantly. 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 The patient is welcome to follow up in the Surgery Clinic in 1 week. Arrangements are made for her to see her family physician and Dr. Wilhelm is planning to discharge the patient this evening. If we can be of further assistance, please call. DICTATING PHYSICIAN: PRAVIN DAWN M.D. [id number] PHY#: [id number] ID: [id number] JOB#: [id number] ACCT: [id number] cc: >
[2016-07-09] MEDS: NORMAL SALINE 1000 ML 1,000 ML IV PRN (16:31)
--- NOTE | 2016-07-09 19:41 | PDOC DISCHARGE SUMMARY ---
General - Admit/Disc Date/PCP Admission Date/Primary Care Provider: 07/05/16 18:45 MAKAYLA ESPINOZA MD Discharge Date: 07/09/16 - Discharge Diagnosis (1) Abdominal pain Is this a current diagnosis for this admission?: YesSummary: The etiology of the abdominal pain is probably neurogenic pain, she is discharged on desipramine (2) Diabetes mellitus type 2 in obese Is this a current diagnosis for this admission?: Yes (3) Morbid obesity Is this a current diagnosis for this admission?: Yes - Additional Information Resuscitation Status: Full Code Home Medications: Atorvastatin Calcium [Lipitor 40 mg Tablet] 40 mg PO QHS 07/06/16 Canagliflozin [Invokana] 50 mg PO BID 07/06/16 Carvedilol [Coreg 25 mg Tablet] 25 mg PO Q12 07/06/16 Chlorthalidone [Chlorthalidone 25 mg Tablet] 25 mg PO DAILY 07/06/16 Dexlansoprazole [Dexilant 60 mg Capsule] 60 mg PO DAILY 07/06/16 Enalapril Maleate [Vasotec 20 mg Tablet] 20 mg PO DAILY 07/06/16 Furosemide [Lasix] 40 mg PO QAM 07/06/16 Insulin Aspart [Novolog Flexpen] 18 unit SUBCUT BIDACBS 07/06/16 Insulin Detemir [Levemir Insulin 100 units/mL] 80 unit SUBCUT QHS 07/06/16 Levothyroxine Sodium [Synthroid] 100 mcg PO DAILY 07/06/16 Metformin HCl [Glucophage] 1,000 mg PO BID 07/06/16 Multivitamin [Multivitamins] 1 each PO DAILY 07/06/16 Valsartan [Diovan] 320 mg PO DAILY 07/06/16 Desipramine HCl 50 mg PO DAILY #90 tablet 07/09/16 History of Present Illness History of Present Illness: Patient is a 56 year old female with history of diabetes mellitus type II, she came to the office complaining of abdominal pain, she said the pain is severe, the pain is epigastric and she said the patient radiate from the front to the back, because OF the cause for acute pancreatitis she was admitted directly from the office to the hospital for evaluation and management of her symptoms. Initial blood tests including comprehensive metabolic panel, hemogram came back normal. The CT scan of the abdomen and pelvis was negative for any acute pathology. She has history of ventral hernia repair with a mesh, she thinks her symptoms are related to the abdominal mesh. There is no passage of black tarry stool there is no hematochezia there is no vomiting blood she has nausea Hospital Course Hospital Course: Patient was admitted directly from the office because of upper abdominal pain, because of the concern for acute pancreatitis because she has a history of acute pancreatitis she was admitted directly from the office for evaluation in the hospital, the initial blood work including hemogram, comprehensive metabolic panel, lipase were all normal. CT scan of the abdomen and pelvis was done and it was normal. Patient kept complaining of abdominal pain she was prostrating she said the pain is intense and that the pain radiated to her back and is worse with food intake, consultation was requested from GI Dr. estrada. She underwent CT scan of the abdomen and pelvis and also upper endoscopy EGD she was found to have Mckenzie esophagus biopsy was taken and it was negative for malignancy, H pylori or inflammatory disease. CTA of the abdomen was done as well and it was negative but patient kept complaining of abdominal pain so consultation was requested from surgery she was seen by the surgeon on upper GI series was recommended this was done and again was negative patient's pain is probably neurogenic/neuropathy pain I explained all this to her Physical Exam Vital Signs: Temp Pulse Resp BP Pulse Ox 97.3 F 74 16 88/48 L 100 07/09/16 15:28 07/09/16 15:28 07/09/16 15:28 07/09/16 15:28 07/09/16 15:28 Intake & Output 07/08/16 07/09/16 07/10/16 06:59 06:59 06:59 Intake Total 952 2244 700 Output Total 0 Balance 952 2244 700 Weight 108.4 kg 107.2 kg General appearance: PRESENT: no acute distress, well-developed, well-nourished Head exam: PRESENT: atraumatic, normocephalic Eye exam: PRESENT: conjunctiva pink, EOMI, PERRLA Ear exam: PRESENT: normal external ear exam Neck exam: PRESENT: full ROM Cardiovascular exam: PRESENT: RRR, +S1, +S2 Pulses: PRESENT: normal dorsalis pedis pul, +2 pedal pulses bilateral GI/Abdominal exam: PRESENT: normal bowel sounds, soft Rectal exam: PRESENT: deferred Neurological exam: PRESENT: alert, awake, oriented to person, oriented to place , oriented to time, oriented to situation, CN II-XII grossly intact Psychiatric exam: PRESENT: appropriate affect, normal mood Skin exam: PRESENT: dry, intact, warm Results Laboratory Results: 07/06/16 03:55 07/06/16 03:59 07/05/16 07/05/16 07/06/16 19:45 19:45 03:59 Creatine Kinase 87 68 CK-MB (CK-2) 0.76 Troponin I < 0.012 07/06/16 07/06/16 07/06/16 03:59 12:37 12:37 Creatine Kinase 73 CK-MB (CK-2) 0.57 0.49 Troponin I < 0.012 < 0.012 07/07/16 07/07/16 07/08/16 20:15 20:15 03:37 Creatine Kinase 69 62 CK-MB (CK-2) 1.01 Troponin I < 0.012 07/08/16 07/08/16 07/08/16 03:37 13:27 13:27 Creatine Kinase 68 CK-MB (CK-2) 0.44 0.88 Troponin I 0.012 0.089 Impressions: Abdomen/Pelvis CT 07/06/16 00:00 IMPRESSION: Intact ventral hernia repair Chest/Abdomen CTA 07/08/16 00:00 IMPRESSION: 1. No acute abnormality identified in the abdomen. No abdominal aortic aneurysm, pseudoaneurysm, penetrating ulcer, or dissection identified. Mesenteric and renal arteries are patent. 2. Diastases of the anterior abdominal wall, similar to prior study. Chest X-Ray 07/08/16 11:12 IMPRESSION: No pneumothorax post right IJ central venous catheter placement. Catheter tip projects over the distal SVC. No focal opacities. Abdomen Ultrasound 07/09/16 00:00 IMPRESSION: Prior cholecystectomy. No acute findings. Upper GI and Small Bowel X-Ray 07/09/16 00:00 IMPRESSION: MILD GASTROESOPHAGEAL REFLUX OTHERWISE UNREMARKABLE UPPER GI SMALL BOWEL FOLLOW-THROUGH.
[2016-07-09] MEDS: ATORVASTATIN CALCIUM 40 MG TABLET PO SCH (21:39)
[2016-07-09] MEDS: INSULIN DETEMIR 100 UNIT/ML 3 ML PEN SUBCUT SCH (21:54)
[2016-07-10] MEDS: OXYCODONE-ACETAMINOPHEN 5-325 MG TABLET PO PRN ×2 (00:34→11:05)
[2016-07-10] MEDS: LEVOTHYROXINE SODIUM 0.1 MG TABLET PO SCH (06:00)
[2016-07-10] MEDS: LANSOPRAZOLE 30 MG TAB.RAP.DR PO SCH (06:00)
[2016-07-10] MEDS: ENOXAPARIN SODIUM INJ 40 MG/0.4 ML DISP.SYRIN SUBCUT SCH (07:42)
[2016-07-10] MEDS: METFORMIN HCL 500 MG TABLET PO SCH (07:42)
[2016-07-10] MEDS: INSULIN LISPRO 100 UNIT/ML 3 ML VIAL SUBCUT PRN (07:43)
[2016-07-10] MEDS: INSULIN LISPRO 100 UNIT/ML 3 ML VIAL SUBCUT SCH (07:44)
[2016-07-10] MEDS: MORPHINE SULFATE 10 MG/ML INJ IV PRN (07:51)
[2016-07-10] MEDS: FUROSEMIDE 40 MG TABLET PO SCH (10:59)
[2016-07-10] MEDS: CARVEDILOL 12.5 MG TABLET PO SCH (10:59)
[2016-07-10] MEDS: VALSARTAN 160 MG TABLET PO SCH (10:59)
[2016-07-10] MEDS: CHLORTHALIDONE 25 MG TABLET PO SCH (11:00)
[2016-07-10] MEDS: MULTIVITAMIN TABLET PO SCH (11:00)
[2016-07-10] MEDS: ENALAPRIL MALEATE 10 MG TABLET PO SCH (11:01)
[2016-07-10 11:35] VITALS: BP 133/77
== END 2016-07-10 14:24 | disposition home or self-care (01) ==
LOC: ER 15:44 → UNDOADMIN 16:01 → EH 16:01 → 4W 18:40 → EH 18:40 → INTOOBSV 18:45 → 4W 18:45 → EH 18:45
PROVIDERS: ADMIT Internal Medicine; ATTEND Internal Medicine
PROC: 0D558ZZ Destruction of Esophagus, Via Natural or Artificial Opening Endoscopic (ICD-10-PCS; 2016-07-07)
PROC: 0DB68ZX Excision of Stomach, Via Natural or Artificial Opening Endoscopic, Diagnostic (ICD-10-PCS; 2016-07-07 09:30)
PROC: 05HM33Z Insertion of Infusion Device into Right Internal Jugular Vein, Percutaneous Approach (ICD-10-PCS; principal; 2016-07-08)
DX: R10.13 Epigastric pain (principal); E11.9 Type 2 diabetes mellitus without complications; E66.01 Morbid (severe) obesity due to excess calories; I11.0 Hypertensive heart disease with heart failure; I50.9 Heart failure, unspecified; I25.10 Atherosclerotic heart disease of native coronary artery without angina pectoris; I48.91 Unspecified atrial fibrillation; J44.9 Chronic obstructive pulmonary disease, unspecified; J45.909 Unspecified asthma, uncomplicated; K21.9 Gastro-esophageal reflux disease without esophagitis; F17.210 Nicotine dependence, cigarettes, uncomplicated; Z79.84 Long term (current) use of oral hypoglycemic drugs; K29.50 Unspecified chronic gastritis without bleeding; K22.70 Barrett's esophagus without dysplasia
CPT/HCPCS: 43270; 43239; 36415 ×4; 84439; 82553 ×4; 82962 ×5; 82150; 82550 ×4; 82565; 83690; 84443; 85025; 85027; 85610; 85730; 80076; 80048; 81001; 84484 ×4; 83036; 88305 ×2; 71010 ×2; 74249; 76705; 74177; 74175; 36561; C1751; J1815 ×6; J3490 ×15; J2270 ×5; J1650 ×3; J7030 ×2; J2704; 740; G0378; G0379

== ENCOUNTER 2016-09-22 10:03 | Emergency (ER) | payer MEDICAID ==
[2016-09-22] MEDS ORDERED: OXYCODONE-ACETAMINOPHEN 5-325 MG TABLET ONE (12:18)
== END 2016-09-22 14:44 | disposition home or self-care (01) ==
LOC: ER 10:03
DX: S93.505A Unspecified sprain of left lesser toe(s), initial encounter (principal); S73.101A Unspecified sprain of right hip, initial encounter; S80.212A Abrasion, left knee, initial encounter; S80.211A Abrasion, right knee, initial encounter; M79.675 Pain in left toe(s); M25.551 Pain in right hip; M54.5 Low back pain; W54.1XXA Struck by dog, initial encounter; F17.200 Nicotine dependence, unspecified, uncomplicated
CPT/HCPCS: 72110; 99283

== ENCOUNTER → 2017-03-24 | Outpatient (CLI) | payer MEDICAID ==
--- NOTE | 2017-03-24 17:22 | RADIOLOGY REPORT (SQ) ---
EXAM DESCRIPTION: KNEE BILAT AP UPRIGHT COMPLETED DATE/TIME: 03/24/2017 5:14 pm REASON FOR STUDY: PAIN IN UNSPEC KNEE (M25.569) M25.569 PAIN IN UNSPECIFIED KNEE COMPARISON: None. NUMBER OF VIEWS: Two views. TECHNIQUE: AP and lateral standing bilateral knees. LIMITATIONS: None. FINDINGS: MINERALIZATION: Normal. RIGHT KNEE BONES: No acute fracture. No worrisome bone lesions. MEDIAL COMPARTMENT: No significant osteophytes. Mild joint space narrowing. No chondrocalcinosis. LATERAL COMPARTMENT: No significant osteophytes. No joint space narrowing. No chondrocalcinosis. LEFT KNEE BONES: No acute fracture. No worrisome bone lesions. MEDIAL COMPARTMENT: No significant osteophytes. Mild joint space narrowing. No chondrocalcinosis. LATERAL COMPARTMENT: No significant osteophytes. No joint space narrowing. No chondrocalcinosis. IMPRESSION: MILD MEDIAL JOINT SPACE NARROWING IN BOTH KNEES. NO OTHER SIGNIFICANT FINDINGS. TECHNICAL DOCUMENTATION: JOB ID: [id number] [employer]- All Rights Reserved
== END ==
LOC: RAD 14:07
PROVIDERS: ATTEND Internal Medicine
DX: M25.562 Pain in left knee (principal); M25.561 Pain in right knee
CPT/HCPCS: 73565

== ENCOUNTER → 2017-06-01 | Outpatient (CLI) | payer MEDICAID ==
[2017-06-01 11:01] LABS: ABSOLUTE BASOPHILS # (AUTO) 0.1 10^3/uL (0.0-0.2); ABSOLUTE EOSINOPHILS # (AUTO) 0.3 10^3/uL (0.0-0.6); ABSOLUTE LYMPHOCYTES (AUTO) 2.7 10^3/uL (0.5-4.7); ABSOLUTE MONOCYTES (AUTO) 0.5 10^3/uL (0.1-1.4); ABSOLUTE NEUT (AUTO) 4.3 10^3/uL (1.7-8.2); BASOPHILS % (AUTO) 0.7 % (0-2); EOSINOPHILS % (AUTO) 3.7 % (0-6); HEMATOCRIT 36.2 % (36.0-47.0); HEMOGLOBIN 12.1 g/dL (12.0-15.5); LYMPHOCYTES % (AUTO) 33.9 % (13-45); MEAN CORPUSCULAR HGB CONC 33.3 g/dL (32.0-36.0); MEAN CORPUSCULAR VOLUME 87 fl (80-97); MONOCYTES % (AUTO) 6.7 % (3-13); PLATELET COUNT 318 10^3/uL (150-450); RED BLOOD COUNT 4.17 10^6/uL (3.72-5.28); RED CELL DISTRIBUTION WIDTH 15.9 % (11.5-14.0); TOTAL CELLS COUNTED % (AUTO) 100 %; WHITE BLOOD COUNT 7.8 10^3/uL (4.0-10.5)
[2017-06-01 11:04] LABS: APPEARANCE,URINE CLEAR; BILIRUBIN,URINE NEGATIVE (NEGATIVE); COLOR,URINE COLORLESS; GLUCOSE, URINE >=500 mg/dL (NEGATIVE); KETONES,URINE NEGATIVE (NEGATIVE); LEUKOCYTE ESTERASE,URINE NEGATIVE (NEGATIVE); NITRITE,URINE NEGATIVE (NEGATIVE); PROTEIN,URINE NEGATIVE (NEGATIVE); UROBILINOGEN,URINE NEGATIVE mg/dL (<2.0)
[2017-06-01 11:19] LABS: ALANINE AMINOTRANSFERASE 32 U/L (9-52); ALBUMIN 4.3 g/dL (3.5-5.0); ALKALINE PHOSPHATASE 82 U/L (38-126); ANION GAP 10 (5-19); ASPARTATE AMINO TRANSFERASE 23 U/L (14-36); BILIRUBIN,DIRECT 0.2 mg/dL (0.0-0.4); BILIRUBIN,TOTAL 0.6 mg/dL (0.2-1.3); BLOOD UREA NITROGEN 13 mg/dL (7-20); CALCIUM 9.9 mg/dL (8.4-10.2); CARBON DIOXIDE 25 mmol/L (22-30); CHLORIDE 102 mmol/L (98-107); CHOLESTEROL 290.59 mg/dL (0-200); GLUCOSE 236 mg/dL (75-110); POTASSIUM 4.7 mmol/L (3.6-5.0); SODIUM 136.5 mmol/L (137-145); TRIGLYCERIDES 219 mg/dL (<150); URIC ACID 4.4 mg/dL (2.5-7.5)
[2017-06-01 11:30] LABS: DIRECT LDL 181 mg/dL (<100)
[2017-06-01 11:32] LABS: VLDL CHOLESTEROL 43.8 mg/dL (10-31)
[2017-06-01 11:35] LABS: FREE T4 (FREE THYROXINE) 0.51 ng/dL (0.78-2.19)
[2017-06-01 11:48] LABS: THYROID STIMULATING HORMONE 11.8 uIU/mL (0.47-4.68)
[2017-06-02 12:39] LABS: CREATININE URINE 16.6 mg/dL (Not Estab.)
[2017-06-02 13:12] LABS: MICROALBUMIN URINE <3.0 ug/mL (Not Estab.)
== END ==
LOC: OD 09:44
PROVIDERS: ATTEND Internal Medicine
DX: E11.42 Type 2 diabetes mellitus with diabetic polyneuropathy (principal)
CPT/HCPCS: 36415; 80053; 80061; 81001; 82043; 82570; 83036; 84439; 84443; 84550; 85025

== ENCOUNTER → 2017-08-09 | Outpatient (CLI) | payer MEDICARE, MEDICAID ==
--- NOTE | 2017-08-09 13:39 | RADIOLOGY REPORT (SQ) ---
EXAM DESCRIPTION: CT HEAD WITHOUT COMPLETED DATE/TIME: 08/09/2017 1:31 pm REASON FOR STUDY: CEREBRAL INFARCTION, UNSPEC (I63.9) I63.9 CEREBRAL INFARCTION, UNSPECIFIED COMPARISON: CT brain 12/11/2012, 02/03/2008, 01/12/2007 TECHNIQUE: Axial images acquired through the brain without intravenous contrast. Images reviewed wi th bone, brain and subdural windows. Images stored on PACS. All CT scanners at this facility use dose modulation, iterative reconstruction, and/or weight based d osing when appropriate to reduce radiation dose to as low as reasonably achievable (ALARA). [facility]: Dose Right [facility]: CareDose [facility]: Dose Right [facility]: Teradose 4D [facility]: [place] RADIATION DOSE: 48.5 mGy. LIMITATIONS: None. FINDINGS: VENTRICLES: Normal size and contour. CEREBRUM: No masses. No hemorrhage. No midline shift. No evidence for acute infarction. Normal gra y/white matter differentiation. No areas of low density in the white matter. CEREBELLUM: No masses. No hemorrhage. No alteration of density. No evidence for acute infarction. EXTRAAXIAL SPACES: No fluid collections. No masses. ORBITS AND GLOBE: No intra- or extraconal masses. Normal contour of globe without masses. CALVARIUM: No fracture. PARANASAL SINUSES: No fluid or mucosal thickening. SOFT TISSUES: No mass or hematoma. OTHER: No other significant finding. IMPRESSION: NORMAL BRAIN CT WITHOUT CONTRAST. EVIDENCE OF ACUTE STROKE: No COMMENT: Quality ID # [id number]: Final reports with documentation of one or more dose reduction techniques (e.g., Automated exposure control, adjustment of the mA and/or kV according to patient size, use of iterative reconstruction technique) TECHNICAL DOCUMENTATION: JOB ID: [id number] [employer]- All Rights Reserved Reading location - IP/workstation name: [email or web address]
== END ==
LOC: RAD 13:21
PROVIDERS: ATTEND Internal Medicine
DX: I63.9 Cerebral infarction, unspecified (principal)
CPT/HCPCS: 70450

== ENCOUNTER 2017-11-07 08:18 | Emergency (ER) | payer MEDICARE, MEDICAID ==
[2017-11-07] MEDS ORDERED: LIDOCAINE 2% VISCOUS SOLN 20 ML UDCUP PO ONE (08:50)
[2017-11-07] MEDS ORDERED: MAG HYDROX/AL HYDROX/SIMETH SUSP 30 ML UDCUP PO ONE (08:50)
--- NOTE | 2017-11-07 08:52 | ER Document Report ---
ED GI/ - General Chief Complaint: Abdominal Pain Stated Complaint: FLANK PAIN Time Seen by Provider: 11/07/17 08:39 Mode of Arrival: Ambulatory Information source: Patient Notes: Patient reports a 2 day history of right upper quadrant and epigastric abdominal pain that radiates through to her back. Patient states the pain goes up into the lower part of her right chest area. Patient denies any cough, nausea vomiting or diarrhea. Patient denies any urinary symptoms. Patient states that she has not had pain like this before and this concerned her. TRAVEL OUTSIDE OF THE [place] IN LAST 30 DAYS: No - HPI Patient complains to provider of: Abdominal pain. No: Diarrhea, Vomiting Onset: Other - 2 days Timing/Duration: Persistent Quality of pain: Achy, Sharp Pain Level: 4 Location: Chest pain, RUQ Vaginal bleeding (Compared to normal period): None Associated symptoms: Chest pain. 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 Denies: Hx Seizures Endocrine Medical History: Reports: Hx Diabetes Mellitus Type 1, Hx Diabetes Mellitus Type 2 GI Medical History: Reports: Hx Gastroesophageal Reflux Disease Musculoskeltal Medical History: Reports Hx Arthritis, Reports Hx Fibromyalgia Psychiatric Medical History: Reports: Hx Depression Past Surgical History: Reports: Hx Cardiac Catheterization, Hx Cholecystectomy, Hx Herniorrhaphy, Hx Hysterectomy, Hx Orthopedic Surgery - right foot, right knee, right hand, Hx Tubal Ligation. Denies: Hx Pacemaker - Immunizations Hx Diphtheria, Pertussis, Tetanus Vaccination: Yes - 2011 Hx Pneumococcal Vaccination: 05/09/09 Review of Systems - Review of Systems Constitutional: No symptoms reported. denies: Fever, Recent illness EENT: No symptoms reported Cardiovascular: Chest pain. denies: Palpitations, Dizziness, Lightheaded Respiratory: No symptoms reported. denies: Cough, Short of breath Gastrointestinal: Abdominal pain. denies: Diarrhea, Nausea, Vomiting, Poor appetite Genitourinary: No symptoms reported. denies: Dysuria, Flank pain Female Genitourinary: No symptoms reported Musculoskeletal: Back pain Skin: No symptoms reported Hematologic/Lymphatic: No symptoms reported Neurological/Psychological: No symptoms reported Physical Exam - Vital signs Vitals: Temp Pulse Resp BP Pulse Ox 97.9 F 73 20 181/103 H 99 11/07/17 08:25 11/07/17 08:25 11/07/17 08:25 11/07/17 08:25 11/07/17 08:25 - General General appearance: Appears well, Alert In distress: None - HEENT Head: Normocephalic, Atraumatic Eyes: Normal Conjunctiva: Normal Nasal: Normal Mouth/Lips: Normal Neck: Normal, Supple. No: Lymphadenopathy - Respiratory Respiratory status: No respiratory distress Chest status: Nontender Breath sounds: Normal. No: Rales, Rhonchi, Stridor, Wheezing Chest palpation: Normal. No: Tender - Cardiovascular Rhythm: Regular Heart sounds: S1 appreciated, S2 appreciated Murmur: No - Abdominal Inspection: Obese Distension: No distension Bowel sounds: Normal Tenderness: Tender - Epigastric, right upper quadrant tenderness Organomegaly: No organomegaly - Back Back: Normal, Nontender. No: CVA tenderness - Extremities General upper extremity: Normal inspection, Normal ROM General lower extremity: Normal inspection, Normal ROM - Neurological Neuro grossly intact: Yes Cognition: Normal [place] Coma Scale Eye Opening: Spontaneous [place] Coma Scale Verbal: Oriented [place] Coma Scale Motor: Obeys Commands [place] Coma Scale Total: 15 - Psychological Associated symptoms: Normal affect, Normal mood - Skin Skin Temperature: Warm Skin Moisture: Dry Skin Color: Normal Course - Re-evaluation Re-evalutation: 11/07/17 10:53 Patient denies any improvement of her abdominal pain symptoms after the GI cocktail. Additional medications ordered. Still awaiting her results of her chemistry panel at this time. 11/07/17 12:54 Patient states that after pain medication her pain is improved. Patient states that she has had epigastric pain in the past that she attributed to pancreatitis but states her pain today under her right breast to the right upper side of her abdomen and through to her back is different than pain that she is ever had in the past. 11/07/17 13:02 Patient with difficult vascular access. Consulted with Dr. Anderson regarding patient presentation and diagnostic evaluation. Discussed exam findings. Advises CT imaging of abdomen and pelvis may do CT of the chest with IV contrast versus a CTA. 11/07/17 15:43 Patient reports that back pain is starting to return and is requesting additional medication. Patient is awaiting lab to redraw her troponin test. 11/07/17 17:50 Patient's repeat troponin reviewed. Patient presents with abdominal pain without signs of peritonitis or other life-threatening or serious etiology. The patient has atypical chest pain as the patient's chest pain is not suggestive of pulmonary embolus, cardiac ischemia, aortic dissection, or other serious etiology. Given the extremely low risk of these diagnoses for the test in evaluation for these possibilities does not appear to be indicated at this time. Patient has been instructed to return if the symptoms worsen or change in any way. - Vital Signs Vital signs: Temp Pulse Resp BP Pulse Ox 98 F 73 16 147/80 H 99 11/07/17 18:27 11/07/17 08:25 11/07/17 18:01 11/07/17 18:00 11/07/17 18:01 - Laboratory Result Diagrams: 11/07/17 09:30 11/07/17 11:05 Laboratory results interpreted by me: 11/07/17 11/07/17 11/07/17 08:45 09:30 11:05 RDW 15.0 H Glucose 185 H Urine Glucose (UA) >=500 H Labs- Entire Visit 11/07/17 11/07/17 11/07/17 08:45 09:30 09:30 WBC 7.6 RBC 4.81 Hgb 13.6 Hct 41.7 MCV 87 MCH 28.3 MCHC 32.6 RDW 15.0 H Plt Count 322 Seg Neutrophils % 57.3 Lymphocytes % 32.6 Monocytes % 5.3 Eosinophils % 4.0 Basophils % 0.8 Absolute Neutrophils 4.4 Absolute Lymphocytes 2.5 Absolute Monocytes 0.4 Absolute Eosinophils 0.3 Absolute Basophils 0.1 Sodium Cancelled Potassium Cancelled Chloride Cancelled Carbon Dioxide Cancelled Anion Gap Cancelled BUN Cancelled Creatinine Cancelled Est GFR ( Amer) Cancelled Est GFR (Non-Af Amer) Cancelled Glucose Cancelled Calcium Cancelled Magnesium Cancelled Total Bilirubin Cancelled Direct Bilirubin Cancelled Neonat Total Bilirubin Cancelled Neonat Direct Bilirubin Cancelled Neonat Indirect Bili Cancelled AST Cancelled ALT Cancelled Alkaline Phosphatase Cancelled Creatine Kinase Cancelled CK-MB (CK-2) Troponin I Total Protein Cancelled Albumin Cancelled Lipase Cancelled Urine Color YELLOW Urine Appearance CLEAR Urine pH 5.0 Ur Specific [place] 1.029 Urine Protein NEGATIVE Urine Glucose (UA) >=500 H Urine Ketones NEGATIVE Urine Blood NEGATIVE Urine Nitrite NEGATIVE Urine Bilirubin NEGATIVE Urine Urobilinogen NEGATIVE Ur Leukocyte Esterase NEGATIVE Urine WBC (Auto) 1 Urine RBC (Auto) 2 Urine Bacteria (Auto) TRACE Squamous Epi Cells Auto <1 Urine Mucus (Auto) RARE Urine Ascorbic Acid NEGATIVE 11/07/17 11/07/17 11/07/17 09:30 11:05 11:05 WBC RBC Hgb Hct MCV MCH MCHC RDW Plt Count Seg Neutrophils % Lymphocytes % Monocytes % Eosinophils % Basophils % Absolute Neutrophils Absolute Lymphocytes Absolute Monocytes Absolute Eosinophils Absolute Basophils Sodium 141.0 Potassium 3.9 Chloride 105 Carbon Dioxide 24 Anion Gap 12 BUN 13 Creatinine 0.68 Est GFR ( Amer) > 60 Est GFR (Non-Af Amer) > 60 Glucose 185 H Calcium 9.9 Magnesium 2.0 Total Bilirubin 0.5 Direct Bilirubin 0.4 Neonat Total Bilirubin Not Reportable Neonat Direct Bilirubin Not Reportable Neonat Indirect Bili Not Reportable AST 17 ALT 23 Alkaline Phosphatase 96 Creatine Kinase 85 CK-MB (CK-2) Cancelled 0.96 Troponin I Cancelled < 0.012 Total Protein 7.3 Albumin 4.2 Lipase 148.2 Urine Color Urine Appearance Urine pH Ur Specific [place] Urine Protein Urine Glucose (UA) Urine Ketones Urine Blood Urine Nitrite Urine Bilirubin Urine Urobilinogen Ur Leukocyte Esterase Urine WBC (Auto) Urine RBC (Auto) Urine Bacteria (Auto) Squamous Epi Cells Auto Urine Mucus (Auto) Urine Ascorbic Acid 11/07/17 16:40 WBC RBC Hgb Hct MCV MCH MCHC RDW Plt Count Seg Neutrophils % Lymphocytes % Monocytes % Eosinophils % Basophils % Absolute Neutrophils Absolute Lymphocytes Absolute Monocytes Absolute Eosinophils Absolute Basophils Sodium Potassium Chloride Carbon Dioxide Anion Gap BUN Creatinine Est GFR ( Amer) Est GFR (Non-Af Amer) Glucose Calcium Magnesium Total Bilirubin Direct Bilirubin Neonat Total Bilirubin Neonat Direct Bilirubin Neonat Indirect Bili AST ALT Alkaline Phosphatase Creatine Kinase CK-MB (CK-2) Troponin I < 0.012 Total Protein Albumin Lipase Urine Color Urine Appearance Urine pH Ur Specific [place] Urine Protein Urine Glucose (UA) Urine Ketones Urine Blood Urine Nitrite Urine Bilirubin Urine Urobilinogen Ur Leukocyte Esterase Urine WBC (Auto) Urine RBC (Auto) Urine Bacteria (Auto) Squamous Epi Cells Auto Urine Mucus (Auto) Urine Ascorbic Acid - Diagnostic Test Radiology reviewed: Reports reviewed Discharge - Discharge Clinical Impression: Abdominal pain Qualifiers: Abdominal location: right upper quadrant Qualified Code(s): R10.11 - Right upper quadrant pain Chest pain Qualifiers: Chest pain type: unspecified Qualified Code(s): R07.9 - Chest pain, unspecified GERD (gastroesophageal reflux disease) Qualifiers: Esophagitis presence: esophagitis presence not specified Qualified Code(s): K21.9 - Gastro-esophageal reflux disease without esophagitis Condition: Stable Disposition: HOME, SELF-CARE Instructions: Abdominal Pain ([facility]), Chest Pain of Unclear Cause ([facility]), Reflux Disease (GERD) ([facility]) Additional Instructions: Return immediately for any new or worsening symptoms Followup with your primary care provider, call tomorrow to make a followup appointment Follow-up with a potato chip cooker machine for further evaluation Prescriptions: Omeprazole Magnesium [Prilosec Otc] 20 mg PO DAILY #15 tablet. Sucralfate [Carafate 1 gm Tablet] 1 gm PO ACHS #40 tablet Forms: Smoking Cessation Education, Return to Work Referrals: ILYA DERAS MD [ACTIVE STAFF] - Follow up as needed MAICOL BEST MD [ACTIVE STAFF] - Follow up as needed MAKAYLA ESPINOZA MD [Primary Care Provider] - Follow up tomorrow
--- NOTE | 2017-11-07 09:22 | RADIOLOGY REPORT (SQ) ---
EXAM DESCRIPTION: ACUTE ABDOMEN SERIES COMPLETED DATE/TIME: 11/07/2017 9:09 am REASON FOR STUDY: upper abd pain COMPARISON: None. NUMBER OF VIEWS: Three views. TECHNIQUE: Frontal chest, supine abdomen and upright/decubitus abdomen radiographic images acquired. LIMITATIONS: None. FINDINGS: CHEST: Minimal scarring or atelectasis left lower lung zone. No acute pulmonary consolid ation. FREE AIR: None. No abnormal gas collections. BOWEL GAS PATTERN: Nonobstructive pattern. No dilated loops or air fluid levels. CALCIFICATIONS: No suspicious calcifications. HARDWARE: Prior cholecystectomy. None in the abdomen. SOFT TISSUES: No gross mass or suggestion of organomegaly. BONES: No acute fracture. No worrisome bone lesions. OTHER: No other significant finding. IMPRESSION: 1 No acute pulmonary findings. 2 NO RADIOGRAPHIC EVIDENCE FOR ACUTE ABDOMINAL DISEASE. TECHNICAL DOCUMENTATION: JOB ID: [id number] [employer]- All Rights Reserved Reading location - IP/workstation name: [email or web address]
[2017-11-07 10:15] LABS: ABSOLUTE BASOPHILS # (AUTO) 0.1 10^3/uL (0.0-0.2); ABSOLUTE EOSINOPHILS # (AUTO) 0.3 10^3/uL (0.0-0.6); ABSOLUTE LYMPHOCYTES (AUTO) 2.5 10^3/uL (0.5-4.7); ABSOLUTE MONOCYTES (AUTO) 0.4 10^3/uL (0.1-1.4); ABSOLUTE NEUT (AUTO) 4.4 10^3/uL (1.7-8.2); BASOPHILS % (AUTO) 0.8 % (0-2); HEMATOCRIT 41.7 % (36.0-47.0); HEMOGLOBIN 13.6 g/dL (12.0-15.5); LYMPHOCYTES % (AUTO) 32.6 % (13-45); MEAN CORPUSCULAR HEMOGLOBIN 28.3 pg (27.0-33.4); MEAN CORPUSCULAR HGB CONC 32.6 g/dL (32.0-36.0); MEAN CORPUSCULAR VOLUME 87 fl (80-97); MONOCYTES % (AUTO) 5.3 % (3-13); PLATELET COUNT 322 10^3/uL (150-450); RED BLOOD COUNT 4.81 10^6/uL (3.72-5.28); SEGMENTED NEUTROPHILS % (AUTO) 57.3 % (42-78); TOTAL CELLS COUNTED % (AUTO) 100 %; WHITE BLOOD COUNT 7.6 10^3/uL (4.0-10.5)
[2017-11-07 10:33] LABS: APPEARANCE,URINE CLEAR; BILIRUBIN,URINE NEGATIVE (NEGATIVE); COLOR,URINE YELLOW; GLUCOSE, URINE >=500 mg/dL (NEGATIVE); KETONES,URINE NEGATIVE (NEGATIVE); LEUKOCYTE ESTERASE,URINE NEGATIVE (NEGATIVE); NITRITE,URINE NEGATIVE (NEGATIVE); PROTEIN,URINE NEGATIVE (NEGATIVE); URINE SPECIFIC GRAVITY 1.029; UROBILINOGEN,URINE NEGATIVE mg/dL (<2.0)
[2017-11-07] MEDS ORDERED: NORMAL SALINE 1000 ML 1,000 ML IV ONE (10:45)
[2017-11-07] MEDS ORDERED: FENTANYL CITRATE INJ/PF 100 MCG/2 ML AMPUL IV ONE ×2 (10:55→15:42)
[2017-11-07 12:09] LABS: ALANINE AMINOTRANSFERASE 23 U/L (9-52); ALBUMIN 4.2 g/dL (3.5-5.0); ALKALINE PHOSPHATASE 96 U/L (38-126); ANION GAP 12 (5-19); ASPARTATE AMINO TRANSFERASE 17 U/L (14-36); BILIRUBIN,DIRECT 0.4 mg/dL (0.0-0.4); BILIRUBIN,TOTAL 0.5 mg/dL (0.2-1.3); BLOOD UREA NITROGEN 13 mg/dL (7-20); CALCIUM 9.9 mg/dL (8.4-10.2); CARBON DIOXIDE 24 mmol/L (22-30); CHLORIDE 105 mmol/L (98-107); CREATINE KINASE 85 U/L (30-135); GLUCOSE 185 mg/dL (75-110); LIPASE 148.2 U/L (23-300); POTASSIUM 3.9 mmol/L (3.6-5.0); TOTAL PROTEIN 7.3 g/dL (6.3-8.2)
[2017-11-07 12:20] LABS: CREATINE KINASE MB 0.96 ng/mL (<4.55)
[2017-11-07 12:29] LABS: TROPONIN I < 0.012 ng/mL
--- NOTE | 2017-11-07 12:46 | EKG REPORT ---
SEVERITY:- NORMAL ECG - SINUS RHYTHM : Confirmed by: Papa Elam MD 07-Nov-2017 12:45:15
--- NOTE | 2017-11-07 13:57 | RADIOLOGY REPORT (SQ) ---
EXAM DESCRIPTION: CT CHEST WITH COMPLETED DATE/TIME: 11/07/2017 1:25 pm REASON FOR STUDY: cp, RUQ, back pain COMPARISON: 07/04/2015 TECHNIQUE: CT scan of the chest performed using helical scanning technique with dynamic intravenous contrast injection. Images reviewed with lung, soft tissue and bone windows. Reconstructed coronal and sagittal MPR images reviewed. All images stored on PACS. All CT scanners at this facility use dose modulation, iterative reconstruction, and/or weight based d osing when appropriate to reduce radiation dose to as low as reasonably achievable (ALARA). [facility]: Dose Right [facility]: CareDose [facility]: Dose Right [facility]: Teradose 4D [facility]: [place] CONTRAST TYPE AND DOSE: 100 cc Isovue 370 RENAL FUNCTION: Creatinine - 0.68 BUN=13 RADIATION DOSE: Total exam DLP: 2220.70. LIMITATIONS: None. FINDINGS: LUNGS AND PLEURA: Slight linear atelectasis or scar in the middle and lower lobes. No ac brea pulmonary consolidation. No pneumothorax or pleural effusion. The central airways are clear. HILAR AND MEDIASTINAL STRUCTURES: No identified masses or abnormal nodes. HEART AND VASCULAR STRUCTURES: No aneurysm or dissection. No central pulmonary emboli. No pericardi al effusion. HARDWARE: None in the chest. UPPER ABDOMEN: Please see CT abdomen report. THYROID AND OTHER SOFT TISSUES: No masses. No adenopathy. BONES: The osseous structures are stable in appearance. No significant finding. OTHER: No other significant finding. IMPRESSION: 1 Slight linear atelectasis or scar in the middle and lower lobes. 2. Otherwise, NORMAL CT OF THE CHEST WITH IV CONTRAST. TECHNICAL DOCUMENTATION: JOB ID: [id number] Quality ID # [id number]: Final reports with documentation of one or more dose reduction techniques (e.g., Au tomated exposure control, adjustment of the mA and/or kV according to patient size, use of iterative reconstruction technique) 2010 [employer]- All Rights Reserved Reading location - IP/workstation name: [email or web address]
--- NOTE | 2017-11-07 14:06 | RADIOLOGY REPORT (SQ) ---
EXAM DESCRIPTION: CT ABD/PELVIS WITH IV ONLY COMPLETED DATE/TIME: 11/07/2017 1:25 pm REASON FOR STUDY: cp, RUQ, back pain . Back pain. COMPARISON: 07/06/2016. TECHNIQUE: CT scan of the abdomen and pelvis performed using helical scanning technique with dynamic intravenous contrast injection. No oral contrast. Images reviewed with lung, soft tissue, and bone windows. Reconstructed coronal and sagittal MPR images reviewed. Delayed images for evaluation of the urinary system also acquired. All images stored on PACS. All CT scanners at this facility use dose modulation, iterative reconstruction, and/or weight based d osing when appropriate to reduce radiation dose to as low as reasonably achievable (ALARA). [facility]: Dose Right [facility]: CareDose [facility]: Dose Right [facility]: Teradose 4D [facility]: [place] CONTRAST TYPE AND DOSE: contrast/concentration: Isovue 370.00 mg/ml; Total Contrast Delivered: 100.0 ml; Total Saline Delivered: 45.9 ml RENAL FUNCTION: Creatinine: 0 .68 RADIATION DOSE: CT Rad equipment meets quality standard of care and radiation dose reduction techniq ues were employed. CTDIvol: 16.8 - 20.2 mGy. DLP: 2221 mGy-cm.. LIMITATIONS: None. FINDINGS: LOWER CHEST: Chronic scarring in lung bases. . LIVER: No abnormality. SPLEEN: No abnormality. PANCREAS: No abnormality. GALLBLADDER: Absent. ADRENAL GLANDS: No abnormality. RIGHT KIDNEY AND URETER: No abnormality. LEFT KIDNEY AND URETER: No abnormality. AORTA AND VESSELS: No aneurysm atherosclerotic change iliac vessels. Renal arteries, SMA, celiac wit hout stenosis. RETROPERITONEUM: No abnormality. BOWEL AND PERITONEAL CAVITY: No masses or inflammatory changes. No free fluid or peritoneal masses. APPENDIX: No abnormality. PELVIS: Urinary bladder: No abnormality. Large and small bowel: No abnormality. Uterus: Absent. ABDOMINAL WALL: Changes of previous ventral hernia repair with mesh placement unchanged. BONES: Degenerative disc disease L5-S1. Degenerative spondylosis L5-S1. IMPRESSION: STATUS POST CHOLECYSTECTOMY. NO SIGNIFICANT OR ACUTE FINDING IN THE ABDOMEN OR PELVIS O N CT SCAN WITH IV CONTRAST. TECHNICAL DOCUMENTATION: JOB ID: [id number]-69 Quality ID # [id number]: Final reports with documentation of one or more dose reduction techniques (e.g., Au tomated exposure control, adjustment of the mA and/or kV according to patient size, use of iterative reconstruction technique) 2010 [employer]- All Rights Reserved Reading location - IP/workstation name: [email or web address]
[2017-11-07 18:25] VITALS: BP 147/80
== END 2017-11-07 18:28 | disposition home or self-care (01) ==
LOC: ER 08:18
DX: K21.9 Gastro-esophageal reflux disease without esophagitis (principal); R10.11 Right upper quadrant pain; R10.13 Epigastric pain; M54.9 Dorsalgia, unspecified; R07.89 Other chest pain; I10 Essential (primary) hypertension; J44.9 Chronic obstructive pulmonary disease, unspecified; F17.200 Nicotine dependence, unspecified, uncomplicated; E11.9 Type 2 diabetes mellitus without complications; Z90.49 Acquired absence of other specified parts of digestive tract
CPT/HCPCS: 93005; 96376; 99285; 96361; 96374; 36415; 82553; 82550; 83690; 83735; 85025; 80053; 81001; 84484; 74022; 71260; 74177; 93010; J3010; J3490; J7030

== ENCOUNTER → 2018-03-29 | Outpatient (CLI) | payer MEDICARE, MEDICAID ==
--- NOTE | 2018-03-29 10:52 | WOMENS IMAGING REPORT ---
EXAM DESCRIPTION: 3D SCREENING MAMMO BILAT COMPLETED DATE/TIME: 03/29/2018 10:23 am REASON FOR STUDY: SCREENING MAMMO Z12.31 ENCNTR SCREEN MAMMOGRAM FOR MALIGNANT NEOPLASM OF SABAS COMPARISON: 2012 TECHNIQUE: Standard craniocaudal and mediolateral oblique views of each breast recorded using digita l acquisition and breast tomosynthesis. LIMITATIONS: None. FINDINGS: No masses, calcifications or architectural distortion. No areas of suspicion. Read with the assistance of CAD. .[facility] - R2 [employer] Version 1.3 .[facility] - R2 Cen[employer] Version 1.3 .[facility] Imaging - R2 Cenova Version 2.4 .[facility] - R2 Cenova Version 2.4 .[facility] - R2 [employer] Education Worker Coordinator Version 9.2 IMPRESSION: NORMAL MAMMOGRAM. BIRADS 1. BREAST DENSITY: a. The breasts are almost entirely fatty. BIRAD: 1 NEGATIVE RECOMMENDATION: ROUTINE SCREENING Please continue yearly bilateral screening mammography/tomosynthesis in March 2019 COMMENT: The patient has been notified of the results by letter per MQSA requirements. Additional no tification policies are in place for contacting patient with suspicious or incomplete findings. Quality ID #[id number]: The [employer] recommends an annual screening mammogram for women aged 40 years or over. This facility utilizes a reminder system to ensure that all patients receive reminder letters, and/or direct phone calls for appointments. This includes reminders for routine scr eening mammograms, diagnostic mammograms, or other Breast Imaging Interventions when appropriate. Th is patient will be placed in the appropriate reminder system. The [employer] (ACR) has developed recommendations for screening MRI of the breast s in certain patient populations, to be used in conjunction with mammography. Breast MRI surveillanc e may be appropriate for women with more than 20% lifetime risk of developing breast cancer as deter mined by genetic testing, significant family history of the disease, or history of mantle radiation f or Hodgkins Disease. ACR Practice Guidelines 2008. DBT Technology DBT is a type of tomographic mammography. With conventional mammography, overlapping breast tissue ma y make lesions difficult to detect, even with good compression. DBT uses an x-ray tube that rotates a round the breast, taking images at different angles. These images are then combined to create thin sl ices of the breast that the radiologist can view as a 3D reconstruction. The [employer] unit can perform full-field digital mammograms (2D imaging); or DBT (3D imaging); or both, in a combination mode that quickly performs both the mammogram and the tomosynthesis scan while the breast is still compressed. PQRS 6045F: Fluoroscopic imaging is not utilized for breast tomosynthesis. TECHNICAL DOCUMENTATION: FINDING NUMBER: (1) ASSESSMENT: (1) JOB ID: [id number] [employer]- All Rights Reserved Reading location - IP/workstation name: [email or web address]
== END ==
LOC: WI 09:48
PROVIDERS: ATTEND Internal Medicine
DX: Z12.31 Encounter for screening mammogram for malignant neoplasm of breast (principal)
CPT/HCPCS: 77063; 77067

== ENCOUNTER 2018-04-16 18:42 | Emergency (ER) | payer MEDICAID, MEDICARE ==
[2018-04-16] MEDS ORDERED: HYDROCODONE/ACETAMINOPHEN 10-325 MG TABLET PO ONE (19:15)
--- NOTE | 2018-04-16 19:50 | RADIOLOGY REPORT (SQ) ---
EXAM DESCRIPTION: TIBIA FIBULA LEFT COMPLETED DATE/TIME: 04/16/2018 7:40 pm REASON FOR STUDY: pain COMPARISON: None. NUMBER OF VIEWS: Two views. TECHNIQUE: Two radiographic images acquired of the left tibia and fibula to include the knee and ank le in at least one projection. LIMITATIONS: None. FINDINGS: MINERALIZATION: Normal. BONES: No acute fracture or dislocation. No worrisome bone lesions. SOFT TISSUES: No obvious swelling or foreign body. OTHER: No other significant finding. IMPRESSION: NEGATIVE STUDY OF THE LEFT TIBIA AND FIBULA. NO RADIOGRAPHIC EVIDENCE OF ACUTE INJURY. TECHNICAL DOCUMENTATION: JOB ID: [id number] [employer]- All Rights Reserved Reading location - IP/workstation name: [email or web address]
--- NOTE | 2018-04-16 20:02 | ER Document Report ---
HPI - HPI Patient complains to provider of: left leg pain Time Seen by Provider: 04/16/18 19:09 Pain Level: 5 Context: Patient is a 57-year-old female presenting to the emergency department complaining of left james pain. Patient states she was walking up the stairs when she slipped and fell forwards stating she skinned her james directly on 1 of the stairs. Patient states she immediately felt pain and she was unable to put pressure on the left lower extremity. Patient denies left hip or knee pain. Patient also denies left ankle pain. States pain is only in her james region. Patient denies hitting her head, neck, back or pain in any, denies LOC or vomiting. Patient denies feeling lightheaded, dizzy, weak prior to fall. Patient states she slipped. Past medical history: Hypertension, hyperlipidemia, CVA, diabetes Medications: Metformin, captopril, Coreg Allergies: None - REPRODUCTIVE Reproductive: DENIES: : Past Medical History - General Information source: Patient - Social History Smoking Status: Unknown if Ever Smoked Family History: DM Patient has suicidal ideation: No Patient has homicidal ideation: No - Past Medical History Cardiac Medical History: Reports: Hx Atrial Fibrillation, Hx Congestive Heart Failure, Hx Heart Attack, Hx Hypercholesterolemia, Hx Hypertension Denies: Hx Coronary Artery Disease Pulmonary Medical History: Reports: Hx Asthma, Hx COPD, Hx Pneumonia Denies: Hx Bronchitis, Hx Tuberculosis Neurological Medical History: Reports: Hx Cerebrovascular Accident. Denies: Hx Seizures Endocrine Medical History: Reports: Hx Diabetes Mellitus Type 1, Hx Diabetes Mellitus Type 2 Renal/ Medical History: Denies: Hx Peritoneal Dialysis GI Medical History: Reports: Hx Gastroesophageal Reflux Disease Musculoskeletal Medical History: Reports Hx Arthritis, Reports Hx Fibromyalgia Psychiatric Medical History: Reports: Hx Depression Past Surgical History: Reports: Hx Cardiac Catheterization, Hx Cholecystectomy, Hx Herniorrhaphy, Hx Hysterectomy, Hx Orthopedic Surgery - right foot, right knee, right hand, Hx Tubal Ligation. Denies: Hx Pacemaker - Immunizations Hx Diphtheria, Pertussis, Tetanus Vaccination: Yes - 2011 Hx Pneumococcal Vaccination: 05/09/09 Vertical Provider Document - CONSTITUTIONAL Agree With Documented VS: Yes Notes: GENERAL: Alert, interacts well. No acute distress. HEAD: Normocephalic, atraumatic. EYES: Pupils equal, round, and reactive to light. Extraocular movements intact. ENT: Oral mucosa moist, tongue midline. NECK: Full range of motion. Supple. Trachea midline. LUNGS: Clear to auscultation bilaterally, no wheezes, rales, or rhonchi. No respiratory distress. HEART: Regular rate and rhythm. No murmur ABDOMEN: Soft, non-tender. Non-distended. Bowel sounds present in all 4 quadrants. EXTREMITIES: Moves all 4 extremities spontaneously. No edema, normal radial and dorsalis pedis pulses bilaterally. No cyanosis. 5 out of 5 strength all 4 extremities. Pain upon palpation entire left anterior james, 2 1 cm skin abrasions noted medial aspect of left lower extremity. Patient has full range of motion of her left hip, knee, ankle. Patient has no calf pain upon palpation. BACK: no cervical, thoracic, lumbar midline tenderness. No saddle anesthesia, normal distal neurovascular exam. NEUROLOGICAL: Alert and oriented x3. Normal speech. cranial nerves II through XII grossly intact PSYCH: Normal affect, normal mood. SKIN: Warm, dry, normal turgor. - INFECTION CONTROL TRAVEL OUTSIDE OF THE [place] IN LAST 30 DAYS: No Course - Re-evaluation Re-evalutation: 04/16/18 20:00 From patient's HPI and family at bedside this appears to be a mechanical fall. X-rays revealed no signs of fractures. Patient does have 2 slight skin tears to the left anterior james. Patient states she is up-to-date on her tetanus and has had it within the last 5 years. 04/16/18 20:05 Bacitracin applied to skin abrasions on left james. Crutches were given and taught the patient had a use by nursing staff. Patient stable for discharge at this time. - Vital Signs Vital signs: Temp Pulse Resp BP Pulse Ox 98 F 76 18 186/93 H 98 04/16/18 18:51 04/16/18 18:51 04/16/18 18:51 04/16/18 18:51 04/16/18 18:51 Discharge - Discharge Clinical Impression: Leg injury Qualifiers: Encounter type: initial encounter Laterality: left Qualified Code(s): S89.92XA - Unspecified injury of left lower leg, initial encounter Condition: Stable Disposition: HOME, SELF-CARE Instructions: Abrasions ([facility]) Additional Instructions: As we discussed you have been seen and treated in the emergency department for an injury to her left lower leg. Your x-rays revealed no signs of fractures at this time. You should keep your lower leg clean as you do not want the abrasion skin infected. You should use crutches as needed for walking. You should continue to take Tylenol and Motrin for pain. He should return to the emergency room for any other concerning symptoms. Also discussed your blood pressure is elevated at today's visit. This could be because you are in pain. This could also be because your blood pressure medication is not working. Please follow-up with your primary care provider to reevaluate her blood pressure. Forms: Elevated Blood Pressure Referrals: MAKAYLA ESPINOZA MD [Primary Care Provider] - Follow up as needed
[2018-04-16 20:27] VITALS: BP 147/87
== END 2018-04-16 20:27 | disposition home or self-care (01) ==
LOC: ER 18:42
DX: S80.812A Abrasion, left lower leg, initial encounter (principal); W01.0XXA Fall on same level from slipping, tripping and stumbling without subsequent striking against object, initial encounter; I48.91 Unspecified atrial fibrillation; I50.9 Heart failure, unspecified; I25.2 Old myocardial infarction; E78.00 Pure hypercholesterolemia, unspecified; I11.0 Hypertensive heart disease with heart failure; J44.9 Chronic obstructive pulmonary disease, unspecified; Z90.49 Acquired absence of other specified parts of digestive tract; Z90.710 Acquired absence of both cervix and uterus
CPT/HCPCS: 99283

== ENCOUNTER → 2018-06-28 | Outpatient (CLI) | payer MEDICARE, MEDICAID ==
--- NOTE | 2018-06-28 14:53 | RADIOLOGY REPORT (SQ) ---
EXAM DESCRIPTION: MRI LUMBAR SPINE WITHOUT COMPLETED DATE/TIME: 06/28/2018 2:19 pm REASON FOR STUDY: M54.16 RADICULOPATHY, LUMBAR REGION M54.16 RADICULOPATHY, LUMBAR REGION COMPARISON: 09/28/2011 TECHNIQUE: Sagittal and Axial imaging includes T1, T2, STIR and gradient echo sequences. Coronal T2/ HASTE imaging. LIMITATIONS: None. FINDINGS: VISUALIZED UPPER ABDOMEN: Limited evaluation. No acute or suspicious findings suggested. SEGMENTATION: No transitional anatomy. The lowest well-developed disc space is labeled L5-S1. ALIGNMENT: Anatomic. VERTEBRAE: Intact. BONE MARROW: Normal. No marrow replacement or reactive changes. DISC SIGNAL: There is diffuse disc desiccation, with mild multilevel disc space height loss not signi ficantly changed from prior. There is focally severe disc space height loss of L5-S1, unchanged from prior. POSTERIOR ELEMENTS: There is moderate to severe multilevel facet degenerative disease, most severe a t L4-L5 HARDWARE: None in the spine. CORD AND CONUS: Normal in size and signal intensity. Conus at the appropriate level. SOFT TISSUES: No aortic aneurysm seen. No bulky retroperitoneal adenopathy or mass. No paraspinal mas s or fluid. L1-L2: No significant spinal stenosis or exit foraminal stenosis. L2-L3: No significant spinal stenosis or exit foraminal stenosis. L3-L4: No significant spinal stenosis or exit foraminal stenosis. L4-L5: Mild central lumbar canal stenosis, minimum AP diameter 7 mm. Moderate bilateral lateral rece ss stenosis and mild bilateral neural foraminal stenosis. L5-S1: Focally severe disc space height loss and broad-based central posterior disc bulge, with moder ate bilateral lateral recess stenosis and moderate bilateral neural foraminal stenosis. LOWER THORACIC: Incompletely imaged. No stenosis seen. SACRUM: Visualized upper sacrum intact. OTHER: No other significant findings. IMPRESSION: There is focally severe disc degenerative disease at L5-S1 and multilevel moderate to se isra facet degenerative disease of the lumbar spine. Facet degenerative disease is most severe at L4 -L5 and L5-S1, resulting in mild central lumbar canal stenosis at L4-L5, minimum AP diameter 7 mm, wi th moderate bilateral lateral recess and mild bilateral neural foraminal stenosis. There is moderate bilateral lateral recess stenosis and moderate bilateral neural foraminal stenosis at L5-S1. These degenerative findings are generally progressed in severity compared to prior examination dated 012. TECHNICAL DOCUMENTATION: JOB ID: [id number] [employer]- All Rights Reserved Reading location - IP/workstation name: [email or web address]
== END ==
LOC: RAD 15:10
PROVIDERS: ATTEND Internal Medicine
DX: M54.16 Radiculopathy, lumbar region (principal)
CPT/HCPCS: 72148

== ENCOUNTER → 2019-03-20 | Outpatient (CLI) | payer MEDICARE, MEDICAID ==
--- NOTE | 2019-03-20 12:59 | RADIOLOGY REPORT (SQ) ---
EXAM DESCRIPTION: L SPINE W/FLEX/EXT COMPLETED DATE/TIME: 03/20/2019 12:21 pm REASON FOR STUDY: M47.817 SPONDYLS W/O MYELOPATHY OR RADICULOPATHY, LUMBOSACR REGION M47.817 SPONDY LS W/O MYELOPATHY OR RADICULOPATHY, LUMBOSACR COMPARISON: None. NUMBER OF VIEWS: Seven view TECHNIQUE: AP, oblique, and lateral sacral views were obtained. Lateral views were obtained in neut ral, flexion, and extension. LIMITATIONS: None. FINDINGS: MINERALIZATION: Normal. SEGMENTATION: Normal. No transitional anatomy. ALIGNMENT: Minimal levoscoliosis. Minimal anterolisthesis of L4 on L5. FLEXION/EXTENSION: No instability. VERTEBRAE: Maintained height. No fracture or worrisome bone lesion. DISCS: Mild disc narrowing at L4-5. More significant narrowing at L5-S1. Small marginal osteophytes at L5-S1. POSTERIOR ELEMENTS: Pedicles and facets are intact. Cannot exclude L5 pars defects. HARDWARE: None in the spine. OTHER: No other significant finding. IMPRESSION: Minimal scoliosis. Minimal anterolisthesis of L4 on L5. Degenerative disc disease. Sp ondylosis. Cannot exclude pars defects at L5. No instability on flexion/ extension. TECHNICAL DOCUMENTATION: JOB ID: [id number]- All Rights Reserved Reading location - IP/workstation name: [email or web address]
== END ==
LOC: RAD 11:53
PROVIDERS: ATTEND Physician Assistant
DX: M47.817 Spondylosis without myelopathy or radiculopathy, lumbosacral region (principal); M51.36 Other intervertebral disc degeneration, lumbar region
CPT/HCPCS: 72114

== ENCOUNTER → 2019-08-10 | Outpatient (CLI) | payer MEDICARE, MEDICAID ==
--- NOTE | 2019-08-10 14:47 | RADIOLOGY REPORT (SQ) ---
EXAM DESCRIPTION: CT ABD/PELVIS WITH IV ORAL IMAGES COMPLETED DATE/TIME: 08/10/2019 2:27 pm REASON FOR STUDY: R10.13 EPIGASTRIC PAIN R10.13 EPIGASTRIC PAIN R63.4 ABNORMAL WEIGHT LOSS COMPARISON: 11/07/2017 TECHNIQUE: CT scan of the abdomen and pelvis performed using helical scanning technique with dynamic intravenous contrast injection. Patient was given oral contrast. Images reviewed with lung, soft ti ssue, and bone windows. Reconstructed coronal and sagittal MPR images reviewed. Delayed images for ev aluation of the urinary system also acquired. All images stored on PACS. All CT scanners at this facility use dose modulation, iterative reconstruction, and/or weight based d osing when appropriate to reduce radiation dose to as low as reasonably achievable (ALARA). [facility]: Dose Right [facility]: CareDose [facility]: Dose Right [facility]: Teradose 4D [facility]: Myla CONTRAST TYPE AND DOSE: contrast/concentration: Isovue 350.00 mg/ml; Total Contrast Delivered: 100.0 ml; Total Saline Delivered: 72.0 ml RENAL FUNCTION: See chart RADIATION DOSE: CT Rad equipment meets quality standard of care and radiation dose reduction techniq ues were employed. CTDIvol: 12.9 - 13.0 mGy. DLP: 1308 mGy-cm.. LIMITATIONS: None. FINDINGS: LOWER CHEST: No significant findings. No nodules or infiltrates. LIVER: Normal size. No masses. No dilated ducts. SPLEEN: Normal size. No focal lesions. PANCREAS: No masses. No significant calcifications. No adjacent inflammation or peripancreatic fluid collections. Pancreatic duct not dilated. GALLBLADDER: Surgically absent. ADRENAL GLANDS: No significant masses or asymmetry. RIGHT KIDNEY AND URETER: No solid masses. No significant calcifications. No hydronephrosis or hyd roureter. LEFT KIDNEY AND URETER: No solid masses. No significant calcifications. No hydronephrosis or hydr oureter. AORTA AND VESSELS: No aneurysm. No dissection. Renal arteries and SMA without stenosis. Moderate yadira rowing at the celiac axis likely from the median arcuate ligament. RETROPERITONEUM: No retroperitoneal adenopathy, hemorrhage or masses. BOWEL AND PERITONEAL CAVITY: No evidence of intestinal obstruction. Apparent wall thickening of the gastric body, possibly related to decompressed state. APPENDIX: Normal. PELVIS: No mass. No free fluid. Normal bladder. ABDOMINAL WALL: Mild subcutaneous stranding along the anterior abdominal wall, possibly from subcutan eous injection. Diastases recti. No hernia. BONES: No significant or acute findings. OTHER: No other significant finding. IMPRESSION: 1. Diffuse gastric body wall thickening, possibly related to decompressed state. Gastr itis or intramural process is not excluded. Endoscopy could be considered for further characterizati on. 2. Prior cholecystectomy. Normal appendix. 3. No other evidence of acute intra-abdominal/pelvic process. TECHNICAL DOCUMENTATION: JOB ID: [id number] Quality ID # [id number]: Final reports with documentation of one or more dose reduction techniques (e.g., Au tomated exposure control, adjustment of the mA and/or kV according to patient size, use of iterative reconstruction technique) 2010 [employer]- All Rights Reserved Reading location - IP/workstation name: [email or web address]
== END ==
LOC: RAD 13:39
PROVIDERS: ATTEND Internal Medicine Gastroenterology
DX: R10.13 Epigastric pain (principal); R63.4 Abnormal weight loss
CPT/HCPCS: 74177; 82565

== ENCOUNTER 2020-01-04 12:45 | Outpatient (CLI) | payer MEDICARE, MEDICAID ==
[2020-01-04] MEDS ORDERED: FERRIC CARBOXYMALTOSE 750 MG in NORMAL SALINE 250 ML IV PRN (13:03)
[2020-01-04 13:09] VITALS: BP 123/69
== END 2020-01-04 14:03 | disposition home or self-care (01) ==
LOC: II 12:45 → 5TH 12:48 → II 14:03
PROVIDERS: ATTEND Internal Medicine
DX: D50.9 Iron deficiency anemia, unspecified (principal)
CPT/HCPCS: 96374; J7050; J1439

== ENCOUNTER 2020-01-11 12:57 | Outpatient (CLI) | payer MEDICARE, MEDICAID ==
[~2020-01-11 12:57] MED LIST: FERRIC CARBOXYMALTOSE 750 MG in NORMAL SALINE 250 ML IV PRN; NORMAL SALINE 250 ML IV PRN
[2020-01-11 13:18] VITALS: BP 134/63
== END 2020-01-11 14:00 | disposition home or self-care (01) ==
LOC: II 12:57 → 5TH 13:18 → II 14:00
PROVIDERS: ATTEND Internal Medicine
DX: D50.9 Iron deficiency anemia, unspecified (principal)
CPT/HCPCS: 96374; J7050; J1439